=== PATIENT | male | born 1995 | race Caucasian/White ===

== ENCOUNTER 2021-11-14 01:32 | Emergency (ER) | payer BC, SELFPAY ==
[2021-11-14 01:32] VITALS: BP 179/101; PULSE 82; RESP 18; TEMP 36.8; O2SAT 98; BMI 54.9
--- NOTE | 2021-11-14 02:12 | EDS_ITS ---
HPI History of Present Illness Chief Complaint: Eye Problem Narrative Narrative: Patient is a 26-year-old male who wears contact lenses. He states that around 5 or 6 o'clock this evening he noticed that his left eye was irritated. He states that he took the lenses out but as the time progressed so did the pain. He denies any direct trauma to the eye or concern for foreign body but with the worsening symptoms presents for evaluation. [facility] Medical History Hypertension Home Medications ciprofloxacin HCl 2 drp LEFT EYE 4X/DAY 5 Days #10 ml 11/14/21 [Rx Last Taken Unknown] Allergy/AdvReac Type Severity Reaction Status Date / Time No Known Allergies Allergy Verified 11/14/21 01:35 Social History Smoking Status: Never smoker ROS ROS ED Constitutional Constitutional ED: Denies chills or fever(s) Eyes Eyes: Reports other Details: Positive left eye pain redness and increased tearing ; Denies diplopia ENT ENT ED: Denies sore throat Cardiovascular Cardiovascular: Denies chest pain Respiratory/Chest Respiratory/Chest: Denies cough or dyspnea Gastrointestinal Gastrointestinal: Denies abdominal pain, diarrhea, nausea or vomiting Musculoskeletal Musculoskeletal: Denies myalgias Integumentary Denies rash Neurologic Neurologic: Denies headache(s) Hematologic/Lymphatic Hematologic/Lymphatic: Denies easy bleeding or easy bruising EXAM Physical Exam Const Vital Signs: 11/14/21 01:32 Temperature 98.2 F Temperature Source Temporal Pulse Rate 82 Respiratory Rate 18 Blood Pressure 179/101 H Blood Pressure Mean 127 Pulse Ox 98 Oxygen Delivery Method Room Air Positive well nourished, well developed and obese General Appearance ED: well developed Nutritional Appearance: obese HEENT Reports moist mucous membranes atraumatic Eyes PERRL and EOMs intact bilaterally Eyes Narrative: Pupils are equal reactive to light and accommodation extraocular muscles are intact. Upper lid was everted there is no foreign body present on left. There is asymmetric scleral injection of the left eye compared to right with increased tearing. Ellis lamp exam shows a corneal abrasion over top the sclera around the 3 o'clock position. Negative Chanda sign. Neck supple Resp normal respiratory effort and clear to auscultation bilaterally Cardio regular rate and regular rhythm Extremity normal to inspection Neuro oriented x3 and CN's II-XII intact bilaterally Sensorium / Orientation: alert Psych mental status grossly normal Mood & Affect: Negative for depressed or anxious Skin no rashes or lesions noted Lesions: no lesions Rashes: no rashes MDM MDM MDM Narrative Medical decision making narrative: Patient presented with unilateral eye redness and pain. He does wear contact lenses. On exam he has a small corneal abrasion around the 3 o'clock position but no foreign body or signs of globe rupture. He also achieved 100% pain relief with tetracaine which also correlates with a corneal abrasion. The patient will be put on Cipro eyedrops because of his abrasion and contact lens use but otherwise as there is no retained foreign body or globe rupture he is safe for discharge Discharge Plan Triage Chief Complaint: Eye Problem ED Provider: Gino Lee Dx/Rx/DC Orders Clinical Impression: Corneal abrasion due to contact lens Instructions: ED Corneal Abrasion Prescriptions: New ciprofloxacin HCl 0.3 % drops 2 drp LEFT EYE 4X/DAY 5 Days Qty: 10 RF: 0 Primary Care Provider: Dana Givens Referrals: Dana Givens MD [Primary Care Provider] - Activity Restrictions/Additional Instructions: Please do not wear your contact lenses for the next 5 days while you are on antibiotic drops Disposition Disposition: Home, Self Care
[2021-11-14] MEDS: Fluorescein 1 MG STRIP 1 STRIP LEFT EYE (02:49)
[2021-11-14] MEDS: Tetracaine 0.5% Ophthalmic Bottle 1 DRP LEFT EYE (02:49)
== END 2021-11-14 02:51 | disposition home or self-care (01) ==
LOC: ED 02:40
PROVIDERS: Emergency Provider Emergency Medicine
DX: H18.829 Corneal disorder due to contact lens, unspecified eye (principal); E66.9 Obesity, unspecified
CPT/HCPCS: 99282

== ENCOUNTER → 2025-07-22 | Outpatient (CLI) | payer BC, SELFPAY ==
--- OUTSIDE RECORDS SUMMARY | 2025-07-22 07:59 | XMS RPT_ITS | CCD ---
Author Organization [facility] Care Team Providers Care Tube Molder Fiberglass Name Role Phone No Doctor Assigned, Nodr Unavailable Unavail able Wilenr Guerin Unavailable Unavailable No Doctor Assigned, Nodr Unavailable Unavail able Unavailable Primary Care Provider Unavailbonnie e Unavailable Primary Care Provider UnavailNICHOL Styles MD Attending Unavailable NICHOL MIRZA MD Consulting Unavailable NICHOL MIRZA MD Primary Care Unavailable NICHOL MIRZA MD Admitting Unavailable PROVIDER, UNKNOWN Consulting Unavailable PROVIDER, UNKNOWN Consulting Unavailable PROVIDER, UNKNOWN Consulting Unavailable AVIVA MINER Attending Unavailable AVIVA MINER Referring Unavailable Unavailable Primary Care Provider UnavailFRANCISCO Harris MD Consulting Unavailable YARMAN COLLAR CUTTER~[phone], QI SIMON Primary C are Unavailable KELL GREENE~[phone], KELL SINGH Admitting Unavailable KELL GREENE~[phone], KELL SINGH Attending Unavailable FRANCISCO CASTORENA MD Consulting Unavailable YARMAN COLLAR CUTTER, AUR[place]A Consulting Unavailable YARMCHRISTOS INIGUEZN, [place]A Consulting Unavailable Bogdan Oleary Referring Unavailable Bogdan Oleary Attending Unavailable Care Physician, No Primary Primary Care Unava ilable Care Physician, No Primary Primary Care Unava ilable Bogdan Oleary Referring Unavailable Bogdan Oleary Attending Unavailable Allergies Allergy Classification Reported Allergen(s) Allergy Type Date of Onset Reaction(s) Facility (1 source) No Known Medication Allergies; Translations: [No Known Medication Allergies] Propensity to adverse reactions to drug (disorder) [facility] Repository Medications Current Medications Medication Drug Class(es) Dates Sig (Normalized) Sig (Original) tirzepatide (MOUNJARO) 2.5 mg/0.5 mL pen injector (3 sources) Start: 08-16-2022 End: 09-15-2022 tirzepatide (MOUNJARO) 2.5 mg/0.5 mL pen injector Indications: Class 3 severe obesity with serious comorbidity in adult, unspecified BMI, unspecified obesity type (HCC) , Body mass index 50.0-59.9, adult (HCC) Inject 2.5 mg subcutaneously one time a week. 2 mL 0 08/16/2022 09/15/2022 Active Comment on above: Inject 2.5 mg subcut aneously one time a week. tirzepatide, weight loss (ZEPBOUND) 2.5 mg/0.5 mL pen injector (1 source) Start: 11-21-2023 End: 02-19-2024 inject 2.5 mg by subcutaneous injection every week tirzepatide, weight loss (ZEPBOUND) 2.5 mg/0.5 mL pen injector Inject 2.5 mg subcutaneously one time a week. 6 mL 0 11/21/2023 02/19/2024 Active Comment on above: Inject 2.5 mg subcut aneously one time a week. topiramate 25 mg oral tablet (9 sources) Start: 11-21-2023 End: 02-19-2024 take 50-59.9 tablets by mouth once daily topiramate (TOPAMAX) 25 mg tablet Indications: Class 3 severe obesity with serious comorbidity in adult, unspecified BMI, unspecified obesity type (HCC) , Body mass index 50.0-59.9, adult (HCC) , Steatosis of liver , Dietary counseling and surveillance , Benign hypertension Take 3 tablets by mouth once daily. 270 tablet 0 11/21/2023 02/19/2024 Active Start: 04-09-2022 End: 11-14-2022 take 50-59.9 tablets by mouth once daily topiramate (TOPAMAX) 25 mg tablet Indications: Class 3 severe obesity with serious comorbidity in adult, unspecified BMI, unspecified obesity type (HCC) , Steatosis of liver , Benign hypertension , Body mass index 50.0-59.9, adult (HCC) , Dietary counseling and surveillance , Daytime sleepiness Take 3 tablets by mouth once daily. 270 tablet 0 08/16/2022 11/14/2022 Active Comment on above: Take 1 tablet by renetta th once daily. Take 3 tablets by mo uth once daily. Completed/Discontinued Medications Medication Drug Class(es) Dates Sig (Normalized) Sig (Original) hydroCHLOROthiazide 12.5 mg / lisinopril 10 mg oral tablet (9 sources) Thiazide Diuretic, Angiotensin Converting Enzyme Inhibitor Start: 05-18-2019 take 10-12.5 mg by mouth once in the morning lisinopril-hydroc hlorothiazide (PRINZIDE,ZESTORE TIC) 10-12.5 mg per tablet Indications: Benign hypertension Take 1 tablet by mouth every morning. 30 tablet 3 05/18/2019 Active Comment on above: Take 1 tablet by renetta every morning. Problems Active Problems Problem Classification Problem Date Documented Da te Episodic/Chronic Abdominal hernia (4 sources) Epigastric hernia; Translations: [Ventral hernia without obstruction or gangrene] Episodic Essential hypertension (13 sources) Benign hypertension; Translations: [Essential (primary) hypertension] Onset: 06-07-2016 06-07-2016 Chronic Other acquired deformities (1 source) Unequal limb length (acquired), left femur; Translations: [Unequal limb length (acquired), left femur] Onset: 06-20-2025 Episodic Other bone disease and musculoskeletal deformities (1 source) Other specified disorders of bone density and structure, other site; Translations: [Other specified disorders of bone density and structure, other site] Onset: 07-13-2025 Episodic Other gastrointestinal disorders (1 source) Finding of abdomen; Translations: [Generalized intra-abdominal and pelvic swelling, mass and lump] Episodic Other liver diseases (2 sources) Steatosis of liver; Translations: [Fatty (change of) liver, not elsewhere classified] Chronic Other liver diseases (2 sources) Fatty (change of) liver, not elsewhere classified; Translations: [Steatosis of liver] Onset: 11-21-2023 Chronic Other lower respiratory disease (1 source) Snoring; Translations: [Snoring] Episodic Other non-traumatic joint disorders (1 source) Other instability, right ankle; Translations: [Other instability, right ankle] Onset: 07-13-2025 Episodic Other nutritional; endocrine; and metabolic disorders (3 sources) Morbid obesity; Translations: [Morbid (severe) obesity due to excess calories] Onset: 06-07-2016 06-07-2016 Chronic Other nutritional; endocrine; and metabolic disorders (11 sources) Severe obesity; Translations: [Morbid (severe) obesity due to excess calories] Onset: 06-07-2016 Chronic Other nutritional; endocrine; and metabolic disorders (10 sources) Body mass index 40+ - severely obese; Translations: [Body mass index (BMI) 50.0-59.9, adult] Onset: 04-09-2022 Chronic Other nutritional; endocrine; and metabolic disorders (2 sources) Morbid (severe) obesity due to excess calories; Translations: [Class 3 severe obesity with serious comorbidity in adult, unspecified BMI, unspecified obesity type (HCC)] Onset: 04-09-2022 Chronic Other nutritional; endocrine; and metabolic disorders (2 sources) Body mass index (BMI) 50.0-59.9, adult; Translations: [Body mass index 50.0-59.9, adult (HCC)] Onset: 04-09-2022 Chronic Residual codes; unclassified (1 source) Obstructive sleep apnea syndrome; Translations: [Obstructive sleep apnea (adult) (pediatric)] Onset: 11-21-2023 11-21-2023 Chronic Sprains and strains (1 source) Sprain of other ligament of right ankle, initial encounter; Translations: [Sprain of other ligament of right ankle, initial encounter] Onset: 07-13-2025 Episodic Past or Other Problems Problem Classification Problem Date Documented Da te Episodic/Chronic Administrative/social admission (11 sources) Patient encounter status; Translations: [Dietary counseling and surveillance] Onset: 04-09-2022 Episodic Coma; stupor; and brain damage (11 sources) Daytime somnolence; Translations: [Somnolence] Onset: 04-09-2022 Episodic Results Test Name Value Interpretation Reference Range Facil [facility] Comprehensive metabolic 2000 panelon 01-16-2024 Albumin [Mass/Vol] 4.2 g/dL Normal 3.9-4.9 [facility] Comment on above: Order Comment: Tristan singer Type: BLOOD SPECIMEN Ordering Facility: [facility] Address: [address] [place] [address] Performed By: #### 2 4323-8, 2132-9 #### [facility] CLIA [id number] [address] [place], [place] [address] [place] [address] [place] ALP [Catalytic activity/Vol] 96 U/L Normal 38-113 [facility] Comment on above: Order Comment: Tristan singer Type: BLOOD SPECIMEN Ordering Facility: [facility] Address: [address] [place], [place] [address] Performed By: #### 2 432-8, 2132-08 #### [facility] CLIA [id number] [address] [place] [address] [place] ALT [Catalytic activity/Vol] 63 U/L High 10-54 [facility] Comment on above: Order Comment: Speci men Type: BLOOD SPECIMEN Ordering Facility: [facility] Address: [address] [place] [address] Performed By: #### 2 4323-07, 2132-08 #### [facility] CLIA [id number] [address] [place] [address] [place] Anion gap [Moles/Vol] 13 mmol/L Normal 9-18 [facility] Comment on above: Order Comment: Speci men Type: BLOOD SPECIMEN Ordering Facility: [facility] Address: [address] [place] [address] Performed By: #### 2 43202-05, 2132-08 #### [facility] CLIA [id number] [address] [place] [address] [place] AST [Catalytic activity/Vol] 27 U/L Normal 14-40 [facility] Comment on above: Order Comment: Speci men Type: BLOOD SPECIMEN Ordering Facility: [facility] Address: [address] [place] [address] Performed By: #### 2 4323-07, 2132-08 #### [facility] CLIA [id number] [address] [place] [address] [place] Bilirubin [Mass/Vol] 0.4 mg/dL Normal 0.2-1.3 [facility] Comment on above: Order Comment: Speci men Type: BLOOD SPECIMEN Ordering Facility: [facility] Address: [address] [place] [address] Performed By: #### 2 43202-05, 2132-08 #### [facility] CLIA [id number] [address] [place] [address] [place] Calcium [Mass/Vol] 9.4 mg/dL Normal 8.5-10.2 [facility] Comment on above: Order Comment: Speci men Type: BLOOD SPECIMEN Ordering Facility: [facility] Address: [address] [place] [address] Performed By: #### 2 4328, 2132-08 #### [facility] CLIA [id number] [address] [place] [address] [place] Chloride [Moles/Vol] 102 mmol/L Normal 97-105 [facility] Comment on above: Order Comment: Speci men Type: BLOOD SPECIMEN Ordering Facility: [facility] Address: [address] [place] [address] Performed By: #### 2 43202-05, 2132-08 #### [facility] CLIA [id number] [address] [place] [address] [place] CO2 [Moles/Vol] 27 mmol/L Normal 22-30 [facility] Comment on above: Order Comment: Speci men Type: BLOOD SPECIMEN Ordering Facility: [facility] Address: [address] [place] [address] Performed By: #### 2 4328, 2132-08 #### [facility] CLIA [id number] [address] [place] [address] [place] Creatinine [Mass/Vol] 0.88 mg/dL Normal 0.73-1.22 [facility] Comment on above: Order Comment: Speci men Type: BLOOD SPECIMEN Ordering Facility: [facility] Address: [address] [place] [address] Performed By: #### 2 432-8, 2132-08 #### [facility] CLIA [id number] [address] [place] [address] [place] Creatinine and Glomerular filtration rate.predicted panel (S/P/Bld) 119 mL/min/1.73m??? Normal >=60 [facility] Comment on above: Order Comment: Tristan singer Type: BLOOD SPECIMEN Ordering Facility: [facility] Address: [address] [place] [address] Result Comment: Buffy mated Glomerular Filtration Rate (eGFR) is calculated using the 2020 CKD-EPI creatinine equation. This equation utilizes serum creatinine, sex, and age as parameters. The creatinine assay has traceable calibration to isotope dilution-mass spectrometry. Refer to KDIGO guidelines for clinical interpretation. In patients with unstable renal function, e.g. those with acute kidney injury, the eGFR may not accurately reflect actual GFR. Performed By: #### 2 4323-8, 2132-08 #### [facility] CLIA [id number] [address] [place] [address] [place] Glucose [Mass/Vol] 105 mg/dL High 74-99 [facility] Comment on above: Order Comment: Tristan singer Type: BLOOD SPECIMEN Ordering Facility: [facility] Address: [address] [place] [address] Result Comment: The [place] Diabetes Association (ADA) provides guidance for cutoff values for fasting glucose and random glucose. The ADA defines fasting as no caloric intake for at least 8 hours. Fasting plasma glucose results between 100 to 125 mg/dL indicate increased risk for diabetes (prediabetes). Fasting plasma glucose results greater than or equal to 126 mg/dL meet the criteria for diagnosis of diabetes. In the absence of unequivocal hyperglycemia, results should be confirmed by repeat testing. In a patient with classic symptoms of hyperglycemia or hyperglycemic crisis, random plasma glucose results greater than or equal to 200 mg/dL meet the criteria for diagnosis of diabetes. Reference: Standards of Medical Care in Diabetes 2016, [place] Diabetes Association. Diabetes Care. 2016.39(Suppl 1). Performed By: #### 2 4323-8, 2132-08 #### [facility] CLIA [id number] [address] [place] [address] [place] Potassium [Moles/Vol] 4.8 mmol/L Normal 3.7-5.1 [facility] Comment on above: Order Comment: Speci men Type: BLOOD SPECIMEN Ordering Facility: [facility] Address: [address] [id number] Performed By: #### 2 4323-8, 2132-08 #### [facility] CLIA [id number] [address] [place] [address] [place] Protein [Mass/Vol] 6.8 g/dL Normal 6.3-8.0 [facility] Comment on above: Order Comment: Speci men Type: BLOOD SPECIMEN Ordering Facility: [facility] Address: [address] [place] [address] Performed By: #### 2 4323-8, 2132-08 #### [facility] CLIA [id number] [address] [place] [address] [place] Sodium [Moles/Vol] 142 mmol/L Normal 136-144 [facility] Comment on above: Order Comment: Speci men Type: BLOOD SPECIMEN Ordering Facility: [facility] Address: [address] [place] [address] Performed By: #### 2 4323-8, 2132-08 #### [facility] CLIA [id number] [address] [place] [address] [place] Urea nitrogen [Mass/Vol] 10 mg/dL Normal 9-24 [facility] Comment on above: Order Comment: Speci men Type: BLOOD SPECIMEN Ordering Facility: [facility] Address: [address] [place] [address] Performed By: #### 2 4323-8, 2132-08 #### [facility] CLIA [id number] [address] [place] [address] [place] HbA1c (Bld)on 01-16-2024 Average glucose Estimated from glycated hemoglobin (Bld) [Mass/Vol] 123 mg/dL Normal [facility] Comment on above: Order Comment: Speci men Type: BLOOD SPECIMEN Ordering Facility: [facility] Address: [address] [place], [place] [address] Result Comment: eAG: (Estimated average glucose) is a calculated value from HgbA1c and is ocean import representative of the average blood glucose level in the last 2-3 month period. Performed By: #### 5 5454-3 #### [facility] CLIA [id number] [address] [place] [address] [place] HbA1c (Bld) [Mass fraction] 5.9 % High 4.3-5.6 [facility] Comment on above: Order Comment: Speci men Type: BLOOD SPECIMEN Ordering Facility: [facility] Address: [address] [place] [address] Result Comment: [place] Diabetes Association guidelines indicate that patients with HgbA1c in the range 5.7-6.4% are at increased risk for development of diabetes, and intervention by lifestyle modification may be beneficial. HgbA1c greater or equal to 6.5% is considered diagnostic of diabetes. Performed By: #### 5 5454-3 #### [facility] CLIA [id number] [address] [place] [address] [place] Insulin SerPl-aCncon 01-16- 024 Insulin Qn 43.9 u[IU]/mL High 3.0-25.0 [facility] Comment on above: Order Comment: Tristan singer Type: BLOOD SPECIMEN Ordering Facility: [facility] Address: [address] [place] [address] Performed By: #### 2 0448-7 #### [facility] CLIA [id number] [address] [place] [address] [place] Vit B12 SerPl-mCncon 024 Cobalamin (Vitamin B12) [Mass/Vol] 484 pg/mL Normal 232-1245 [facility] Comment on above: Order Comment: Tristan singer Type: BLOOD SPECIMEN Ordering Facility: [facility] Address: [address] [place] [address] Performed By: #### 2 4323-8, 2132-9 #### [facility] CLIA [id number] [address] [place], [place] [address] [facility] Neto 11-27-2023 CNPN Telephone (AGGENS4) RAVEN KAUR ([id number]) 1995 M Date Time Provider Department 11/27/23 AVIVA MINER AGGENS4 During your visit today, we recorded the following information about you: Wilfredo Bonner MA 11/27/2023 2:31 PM Signed Patient called stating that his insurance requires prior authorization for Zepbound. I attempted to submit PA via cover my meds however It would not let me submit as it could not verify the patient. I called [employer] to initiate over the phone and was informed that they are having trouble submitting due to a third green party. I called the patient and he informed me that he is getting new insurance that starts on 12/01/2023 and advised that I can just wait until next week and submit through them. See below insurance info: [employer] PPO ID: [id number] Group: [id number] Provider Services: [phone] [facility] [id number] Covered through current employment RXBin:[id number] PCN: [id number] RX Group: [id number] ILA Townsend Heather, [place] 12/03/2023 2:16 PM Signed I submitted prior authorization for Zepbound via cover my meds using provided insurance information and received the following automatic response: Information regarding your request This request cannot be processed due to the medication is not covered by the plan. Patient informed that Zepbound is not covered by his plan. Wilfredo Bonner MA Allergies As of Date: 11/27/2023 (No Known Allergies) Date Reviewed: 11/21/2023 Reviewed by: Shoshana Brunner Ma - Fully Assessed Reason for Visit: Medication Preauthorization [914] Cmt: Zepbound Prescriptions as of 12/03/2023 - topiramate (TOPAMAX) 25 mg tablet Take 3 tablets by mouth once daily. - tirzepatide, weight loss (ZEPBOUND) 2.5 mg/0.5 mL pen injector Inject 2.5 mg subcutaneously one time a week. 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] 03/27/2010 06/07/2016 Benign hypertension [I10] 06/07/2016 Class 3 severe obesity with serious comorbidity*06/07/2016 Daytime sleepiness [R40.0] 04/09/2022 Dietary counseling and surveillance [Z71.3] 04/09/2022 Body mass index 50.0-59.9, adult (HCC) [Z68.43] 04/09/2022 Obstructive sleep apnea syndrome [G47.33] 11/21/2023 Encounter Status:Closed by WILFREDO BONNER on 12/03/23 [facility] Vital Signs Date Time Vital Sign Value Performing Clinician Phyllis saavedra 08-16-2022 13:11-0400 Body height 188 cm Aviva Miner MD Work Phone: [facility] 08-16-2022 13:11-0400 Body weight 193.23 kg Aviva Miner MD Work Phone: [facility] 04-09-2022 09:08-0400 Body height 188 cm Aviva Miner MD Work Phone: [facility] 04-09-2022 09:08-0400 Body weight 193.23 kg Aviva Miner MD Work Phone: [facility] 04-09-2022 09:08-0400 Diastolic blood pressure 80 mm[Hg] Aviva Miner MD Work Phone: [facility] 04-09-2022 09:08-0400 Heart rate 79 /min Aviva Miner MD Work Phone: [facility] 04-09-2022 09:08-0400 Respiratory rate 16 /min Aviva Miner MD Work Phone: [facility] 04-09-2022 09:08-0400 SaO2% (BldA) [Mass fraction] 97 % Aviva Miner MD Work Phone: [facility] 04-09-2022 09:08-0400 Systolic blood pressure 130 mm[Hg] Aviva Miner MD Work Phone: [facility] 03-18-2022 17:47-0400 Body temperature 96.49 [degF] [facility] COLLAR CUTTER.ALTERATION INSPECTOR Work Phone: [facility] 03-18-2022 17:47-0400 Body weight 192.78 kg [facility] COLLAR CUTTER.ALTERATION INSPECTOR Work Phone: [facility] 03-18-2022 17:47-0400 Diastolic blood pressure 104 mm[Hg] Bogdan P[place]lebury COLLAR CUTTER.ALTERATION INSPECTOR Work Phone: [facility] 03-18-2022 17:47-0400 Heart rate 97 /min Bogdan P[place]lebury COLLAR CUTTER.ALTERATION INSPECTOR Work Phone: [facility] 03-18-2022 17:47-0400 Respiratory rate 20 /min [facility] COLLAR CUTTER.ALTERATION INSPECTOR Work Phone: [facility] 03-18-2022 17:47-0400 SaO2% (BldA) [Mass fraction] 96 % [facility] COLLAR CUTTER.ALTERATION INSPECTOR Work Phone: [facility] 03-18-2022 17:47-0400 Systolic blood pressure 156 mm[Hg] Bogdan Pendlebury COLLAR CUTTER.ALTERATION INSPECTOR Work Phone: [facility] Encounters Encounter Date Encounter Type Care Provider Facility Start: 07-22-2025 ambulatory No Primary Car e Physician Facility:[facility] Start: 06-20-2025 ambulatory Bogdan Ireland y:[facility] Start: 01-29-2025 ambulatory FRANCISCO CASTORENA MD Facilit y:[facility] Start: 01-23-2024 Telephone encounter Aviva keith MD Work Phone: [facility] Start: 01-16-2024 End: 01-17-2024 ambulatory AVIVA MINER Facility:[facility] Start: 11-21-2023 End: 11-21-2023 ambulatory [facility] Facility:[facility] Start: 08-28-2023 End: 08-28-2023 ambulatory NICHOL GREENE [facility] Start: 08-22-2022 Telephone encounter Aviva keith MD Work Phone: [facility] Comment on above: Medication Authoriza tion (topamax) Medication Authoriza tion (mounjaro) Start: 08-16-2022 End: 08-16-2022 ambulatory Aviva Miner MD Work Phone: [facility] Comment on above: Class 3 severe obesi ty with serious comorbidity in adult, unspecified BMI, unspecified obesity type (HCC) (Primary Dx); Steatosis of liver; Benign hypertension; Body mass index 50.0-59.9, adult (HCC); Dietary counseling and surveillance; Daytime sleepiness; Ventral hernia without obstruction or gangrene Start: 08-16-2022 End: 08-16-2022 Telemedicine consultation with patient Aviva Miner MD Work Phone: [facility] Start: 07-16-2022 Telephone encounter Aviva keith MD Work Phone: [facility] Comment on above: Missed Appointment ( Called to reschedule appt. For Phentermine #1) Start: 04-25-2022 End: 04-25-2022 ambulatory Meek Hartmann MD Work Phone: [facility] Comment on above: Epigastric hernia (P rimary Dx); Class 3 severe obesity with serious comorbidity in adult, unspecified BMI, unspecified obesity type (HCC); Steatosis of liver Start: 04-25-2022 End: 04-25-2022 Telemedicine consultation with patient Meek Hartmann MD Work Phone: [facility] Start: 04-09-2022 End: 04-09-2022 Subsequent hospital visit by physician [facility] Work Phone: [facility] Comment on above: Epigastric hernia [K 43.9] Start: 04-09-2022 End: 04-09-2022 Patient encounter procedure Aviva Miner MD Work Phone: [facility] Comment on above: Class 3 severe obesi ty with serious comorbidity in adult, unspecified BMI, unspecified obesity type (HCC) (Primary Dx); Epigastric hernia; Benign hypertension; Body mass index 50.0-59.9, adult (HCC); Dietary counseling and surveillance; Daytime sleepiness; Snoring Start: 04-08-2022 Telephone encounter Aviva keith MD Work Phone: [facility] Comment on above: Appointment (switche d to in office) Start: 03-18-2022 End: 03-18-2022 Patient encounter procedure Bogdan Graham APRN.ALTERATION INSPECTOR Work Phone: [facility] Comment on above: Generalized swelling , mass, or lump of abdomen or pelvis (Primary Dx) Start: 02-26-2018 End: 02-26-2018 Ambulatory Nodr No Doctor Assigned Facility:[facility] Procedures Date Procedure Procedure Detail Performing Clinician Start: 04-09-2022 Ct abdomen & pelvis w/contrast material Meek Hartmann MD Work Phone: Start: 04-02-2019 Adult depression screening assessment Bogdan Graham APRN.ALTERATION INSPECTOR Work Phone: Plan of Treatment Date Care Activity Detail Author Start: 12-01-2023 Depression Assessment Depression Ass essment [facility] Start: 08-01-2023 Influenza vaccination Influenza Vacc ine (#1) [facility] Start: 08-16-2022 End: 10-16-2022 25-hydroxyvitamin D3 [Mass/volume] in Serum or Plasma VITAMIN D 25 HYDROXY Lab Routine Class 3 severe obesity with serious comorbidity in adult, unspecified BMI, unspecified obesity type (HCC) Steatosis of liver Benign hypertension Body mass index 50.0-59.9, adult (HCC) Dietary counseling and surveillance Daytime sleepiness Expected: 08/16/2022, Expires: 10/16/2022 [facility] Work Phone: Comment on above: Expected: 08/16/2022 , Expires: 10/16/2022 Start: 08-16-2022 End: 10-16-2022 CBC panel - Blood by Automated count CBC Lab Routine Class 3 severe obesity with serious comorbidity in adult, unspecified BMI, unspecified obesity type (HCC) Steatosis of liver Benign hypertension Body mass index 50.0-59.9, adult (HCC) Dietary counseling and surveillance Daytime sleepiness Expected: 08/16/2022, Expires: 10/16/2022 [facility] Work Phone: Comment on above: Expected: 08/16/2022 , Expires: 10/16/2022 Start: 08-16-2022 End: 10-16-2022 Cobalamin (Vitamin B12) [Mass/volume] in Serum or Plasma VITAMIN B12 BLOOD Lab Routine Class 3 severe obesity with serious comorbidity in adult, unspecified BMI, unspecified obesity type (HCC) Steatosis of liver Benign hypertension Body mass index 50.0-59.9, adult (HCC) Dietary counseling and surveillance Daytime sleepiness Expected: 08/16/2022, Expires: 10/16/2022 [facility] Work Phone: Comment on above: Expected: 08/16/2022 , Expires: 10/16/2022 Start: 08-16-2022 End: 10-16-2022 Comprehensive metabolic 2000 panel - Serum or Plasma COMP METABOLIC PANEL Lab Routine Class 3 severe obesity with serious comorbidity in adult, unspecified BMI, unspecified obesity type (HCC) Steatosis of liver Benign hypertension Body mass index 50.0-59.9, adult (HCC) Dietary counseling and surveillance Daytime sleepiness Expected: 08/16/2022, Expires: 10/16/2022 [facility] Work Phone: Comment on above: Expected: 08/16/2022 , Expires: 10/16/2022 Start: 08-16-2022 End: 10-16-2022 Hemoglobin A1c in Blood HGB A1C Lab Routine Class 3 severe obesity with serious comorbidity in adult, unspecified BMI, unspecified obesity type (HCC) Steatosis of liver Benign hypertension Body mass index 50.0-59.9, adult (HCC) Dietary counseling and surveillance Daytime sleepiness Expected: 08/16/2022, Expires: 10/16/2022 [facility] Work Phone: Comment on above: Expected: 08/16/2022 , Expires: 10/16/2022 Start: 08-16-2022 End: 10-16-2022 Lipid 1996 panel - Serum or Plasma LIPID PANEL BASIC Lab Routine Class 3 severe obesity with serious comorbidity in adult, unspecified BMI, unspecified obesity type (HCC) Steatosis of liver Benign hypertension Body mass index 50.0-59.9, adult (HCC) Dietary counseling and surveillance Daytime sleepiness Expected: 08/16/2022, Expires: 10/16/2022 [facility] Work Phone: Comment on above: Expected: 08/16/2022 , Expires: 10/16/2022 Start: 08-01-2022 Influenza vaccination C [facility] Start: 04-09-2022 End: 06-09-2022 CBC panel - Blood by Automated count CBC Lab Routine Epigastric hernia Benign hypertension Class 3 severe obesity with serious comorbidity in adult, unspecified BMI, unspecified obesity type (HCC) Body mass index 50.0-59.9, adult (HCC) Expected: 04/09/2022, Expires: 06/09/2022 [facility] Work Phone: Comment on above: Expected: 04/09/2022 , Expires: 06/09/2022 Start: 04-09-2022 End: 06-09-2022 Comprehensive metabolic 2000 panel - Serum or Plasma COMP METABOLIC PANEL Lab Routine Epigastric hernia Benign hypertension Class 3 severe obesity with serious comorbidity in adult, unspecified BMI, unspecified obesity type (HCC) Body mass index 50.0-59.9, adult (HCC) Expected: 04/09/2022, Expires: 06/09/2022 [facility] Work Phone: Comment on above: Expected: 04/09/2022 , Expires: 06/09/2022 Start: 04-09-2022 End: 06-09-2022 Hemoglobin A1c/Hemoglobin.total in Blood HGB A1C Lab Routine Epigastric hernia Benign hypertension Class 3 severe obesity with serious comorbidity in adult, unspecified BMI, unspecified obesity type (HCC) Body mass index 50.0-59.9, adult (HCC) Expected: 04/09/2022, Expires: 06/09/2022 [facility] Work Phone: Comment on above: Expected: 04/09/2022 , Expires: 06/09/2022 Start: 04-09-2022 End: 06-09-2022 Insulin [Units/volume] in Serum or Plasma INSULIN ASSAY BLOOD Lab Routine Epigastric hernia Benign hypertension Class 3 severe obesity with serious comorbidity in adult, unspecified BMI, unspecified obesity type (HCC) Body mass index 50.0-59.9, adult (HCC) Expected: 04/09/2022, Expires: 06/09/2022 [facility] Work Phone: Comment on above: Expected: 04/09/2022 , Expires: 06/09/2022 Start: 04-09-2022 End: 06-09-2022 LIPID PANEL BASIC LIPID PANEL BASIC Lab Routine Epigastric hernia Benign hypertension Class 3 severe obesity with serious comorbidity in adult, unspecified BMI, unspecified obesity type (HCC) Body mass index 50.0-59.9, adult (HCC) Expected: 04/09/2022, Expires: 06/09/2022 [facility] Work Phone: Comment on above: Expected: 04/09/2022 , Expires: 06/09/2022 Start: 04-09-2022 End: 06-09-2022 Thyrotropin [Units/volume] in Serum or Plasma TSH BLD Lab Routine Epigastric hernia Benign hypertension Class 3 severe obesity with serious comorbidity in adult, unspecified BMI, unspecified obesity type (HCC) Body mass index 50.0-59.9, adult (HCC) Expected: 04/09/2022, Expires: 06/09/2022 [facility] Work Phone: Comment on above: Expected: 04/09/2022 , Expires: 06/09/2022 Start: 04-09-2022 End: 06-09-2022 VITAMIN B12 BLOOD VITAMIN B12 BLOOD Lab Routine Epigastric hernia Benign hypertension Class 3 severe obesity with serious comorbidity in adult, unspecified BMI, unspecified obesity type (HCC) Body mass index 50.0-59.9, adult (HCC) Expected: 04/09/2022, Expires: 06/09/2022 [facility] Work Phone: Comment on above: Expected: 04/09/2022 , Expires: 06/09/2022 Start: 04-09-2022 End: 06-09-2022 VITAMIN D 25 HYDROXY VITAMIN D 25 HYDROXY Lab Routine Epigastric hernia Benign hypertension Class 3 severe obesity with serious comorbidity in adult, unspecified BMI, unspecified obesity type (HCC) Body mass index 50.0-59.9, adult (HCC) Expected: 04/09/2022, Expires: 06/09/2022 [facility] Work Phone: Comment on above: Expected: 04/09/2022 , Expires: 06/09/2022 Start: 04-30-2020 ANNUAL PCP TEAM DIRECTOR SUPPLY ZHANE DISEASE VISIT ANNUAL PCP TEAM CHRONIC DISEASE VISIT [facility] Start: 04-02-2020 Adult depression screening assessment DEPRESSION SCREENING [facility] Start: 07-01-2016 Urine microalbumin profile [facility] Start: 2011 ANNUAL PCP TEAM DIRECTOR SUPPLY ZHANE DISEASE VISIT ANNUAL PCP TEAM CHRONIC DISEASE VISIT [facility] Start: 2011 BP CONTROLLED (<130/80) BP CONTROLLE D (<130/80) [facility] Start: 2011 HEPATITIS C SCREENING HEPATITIS C [facility] Start: 2011 Hepatitis C screening Hepatitis C [facility] Start: 2011 HIV SCREENING HIV SCREENING [facility] Start: 2011 HIV screening HIV Screening [facility] Start: 1998 COVID-19 VACCINE (#1) COVID-19 VACCI NE (#1) [facility] Start: 1998 COVID-19 VACCINE (1) COVID-19 VACCIN E (1) [facility] Start: 1993 COVID-19 VACCINE (#1) COVID-19 VACCI NE (#1) [facility] Ct abdomen & pelvis w/contrast material CT ABD/PEL W IVCON Radiology Routine Epigastric hernia Morbid obesity due to excess calories (HCC) 04/09/2022 2:47 PM EDT [facility] Work Phone: [facility] Immunizations Immunization Date Immunization Notes Care Provider Fa josh 07-01-2006 tetanus toxoid, reduced diphtheria toxoid, and acellular pertussis vaccine, adsorbed Bogdan Pendshawna COLLAR CUTTER[employer] Work Phone: [facility] Work Phone: 07-01-2005 Meningococcal, MCV4, unspecified conjugate formulation(groups A, C, Y and W-135) Bogdan Graham COLLAR CUTTER.[facility] Work Phone: [facility] Work Phone: 08-26-1998 diphtheria, tetanus toxoids and pertussis vaccine Bogdan Graham COLLAR CUTTER.ALTERATION INSPECTOR Work Phone: [facility] Work Phone: 08-26-1998 measles, mumps and rubella virus vaccine Bogdan Graham COLLAR CUTTER.[facility] Work Phone: [facility] Work Phone: 08-26-1998 trivalent poliovirus vaccine, live, oral Bogdan Graham COLLAR CUTTER.[facility] Work Phone: [facility] Work Phone: 07-20-1996 diphtheria, tetanus toxoids and acellular pertussis vaccine Bogdan Graham COLLAR CUTTER.ALTERATION INSPECTOR Work Phone: [facility] Work Phone: 07-20-1996 haemophilus influenz ae type b vaccine, HbOC conjugate Bogdan Graham COLLAR CUTTER.ALTERATION INSPECTOR Work Phone: [facility] Work Phone: 07-20-1996 measles, mumps and rubella virus vaccine Bogdan Pendshawna COLLAR CUTTER.ALTERATION INSPECTOR Work Phone: [facility] Work Phone: 1996 Chicken Pox (disease) [facility] Work Phone: [facility] Work Phone: 01-03-1994 diphtheria, tetanus toxoids and pertussis vaccine Bogdanvasiliy [facility] Work Phone: [facility] Work Phone: 01-03-1994 haemophilus influenz ae type b vaccine, HbOC conjugate [facility] C[employer] Work Phone: [facility] Work Phone: 01-03-1994 hepatitis B vaccine, pediatric or pediatric/adolescent dosage Bogdanvasiliy [facility] [employer] C[employer] Work Phone: [facility] Work Phone: 01-03-1994 trivalent poliovirus vaccine, live, oral [facility] Work Phone: [facility] Work Phone: 1993 diphtheria, tetanus toxoids and pertussis vaccine [facility] Work Phone: [facility] Work Phone: 1993 haemophilus influenz ae type b vaccine, HbOC conjugate [facility] Work Phone: [facility] Work Phone: 1993 hepatitis B vaccine, pediatric or pediatric/adolescent dosage Bogdanvasiliy [facility] [employer] Work Phone: [facility] Work Phone: 1993 trivalent poliovirus vaccine, live, oral [facility] Work Phone: [facility] Work Phone: 1993 diphtheria, tetanus toxoids and pertussis vaccine Bogdan [facility] Work Phone: [facility] Work Phone: 1993 haemophilus influenz ae type b vaccine, HbOC conjugate Bogdan Santos COLLAR CUTTER.ALTERATION INSPECTOR Work Phone: [facility] Work Phone: 1993 trivalent poliovirus vaccine, live, oral Bogdanvasiliy Graham COLLAR CUTTER.ALTERATION INSPECTOR Work Phone: [facility] Work Phone: 1993 hepatitis B vaccine, pediatric or pediatric/adolescent dosage Bogdan Santos COLLAR CUTTER.ALTERATION INSPECTOR Work Phone: [facility] Work Phone: Payers Date Payer Category Payer Self-pay 2017 Unknown 2017 Unknown [employer] PPO [id number] 2017-Present [phone] [facility] [id number] [place] [address] PPO [id number] 2017 Unknown [id number] 1993 Unknown [id number] 1993 Unknown [id number] 1959 Unknown [id number] Unknown [id number] Unknown [id number] Unknown [id number] Social History Date Type Detail Facility Start: [facility]-02-[facility] Work Phone: History of tobacco use Chews Tobacco [facility] Start: 03-18-2022 End: 11-21-2023 Alcohol intake Current drinker of alcohol (finding) [facility] Start: 01-09-2016 History SDOH Alcohol Comment occasional [facility] Start: 1993 Sex Assigned At Not on file C [facility] Start: 03-08-2022 End: 04-09-2022 Exposure to SARS-CoV-2 (event) Not sure [facility] Start: 03-26-2022 End: 11-21-2023 Alcohol intake [facility] Start: 03-26-2022 History SDOH Alcohol Comment 2x/week [facility] Start: 03-30-2022 End: 04-09-2022 Exposure to SARS-CoV-2 (event) Yes [facility] Start: 04-02-2019 Tobacco use and exposure User of smokeless tobacco [facility] Start: 04-02-2019 End: 11-21-2023 Tobacco use panel [facility] Adult Depression Screening Assessment 0 [facility] Clinical Notes 03-27-2010 to 11-21-2023 Telephone Encounter - Leonarda Liu MA - 08/22/2022 10:41 AM EDTTelephone Encounter - Leonarda Liu MA - 08/22/2022 10:29 AM EDTPatient InstructionsPatient InstructionsPatient Instructions Note Date & Type Note Facility 11-21-2023 Note HNO ID: [id number] Author: Aviva Miner MD Service: ? Author Type: Physician Type: Progress Notes Filed: 11/21/2023 3:49 PM Note Text: Aviva Miner MD [facility] [address] [place] [address], [facility] [address] [place] [id number] This Team Access Model visit is a virtual visit due to COVID -19 Pandemic . It required patient-provider interaction for the medical decision making as documented below. Consent was obtained to complete today's distance health visit. Raven Kaur is a 27 year old male with PMH of HTN/ here today for a follow up on his weight loss efforts. He is currently taking the prescription weight loss medication Topiramate Concerns: Stopped topamax as didn't see help Has been following with sleep Medicine : has sleep study :on cpap BP has been better controlled Mounjaro was not covered He is continuing with diet changes: no -Main focus of dietary changes: no routine/as so busy He is continuing with exercise changes: no -Exercise routine: has been remodeling house Goal weight:300 Review of weight loss medication side effects Any GI upset? no Changes to blood pressure? no Visual Changes: no -- Patient reports some suppression of his appetite and increase in satiety since starting the medication Diet: Not been very consistent with meals mainly because of his schedule -- He also states that it has been very hard to eat at home and not doing meal preparation but recommended to add more protein may be going to the grocery store where he can buy prepackaged food including salads and protein. Discussed starting with good structure. Sleep: ok Stress: Coping well Smoking/Alcohol -denies Review of Systems Constitutional: Positive for malaise/fatigue. HENT: Negative for congestion and tinnitus. Eyes: Negative for blurred vision. Respiratory: Negative for shortness of breath. Cardiovascular: Negative for palpitations, orthopnea and leg swelling. Gastrointestinal: Negative for heartburn, nausea and vomiting. Genitourinary: Negative for dysuria and frequency. No kidney stones Musculoskeletal: Negative for back pain and joint pain. Neurological: Negative for weakness. Psychiatric/Behavioral: The patient does not have insomnia. No kidney stones No previous history of pancreatitis No personal or family history of medullary thyroid cancer No Family history of MEN syndrome VITALS: Ht 188 cm (6' 2) Wt (!) 188.2 kg (415 lb) BMI 53.28 kg/m? , Body mass index is 53.28 kg/m?. Physical Exam Constitutional:. --no issues with communication HEENT: Normocephalic and atraumatic. Eyes: Conjunctiva appear normal. No scleral icterus. Hearing: Is grossly intact. Neck: Range of motion appears normal. Thyroid: appears symmetric and not enlarged. Pulmonary/Chest: Effort normal. Psychiatric: Mood, memory, affect and judgment normal. Neurological: alert and oriented to person, place, and time. Impression and Plan: ASSESSMENT/PLAN: 1. Class 3 severe obesity with serious comorbidity in adult, unspecified BMI, unspecified obesity type (HCC) - ICD9: 278.01, ICD10: E66.01 (primary diagnosis) Has lost 10 pounds since his last visit. - Behavioral and pharmacological intervention -- counseled in length ,recommended Low carb /low sugar diet --managing maladaptive eating behaviors and adding resistance exercise. Continue low carb diet, weights/cardio exercise and increase NEAT. I have also reviewed he possibility of using weight loss medications in an effort to reduce her appetite. I have reviewed the different therapeutic options available including We have also reviewed the possibility of using on her medications such as metformin which has been also associated with weight loss. We agreed that trying Zepbound could be her best option at this point. I reviewed with the patient pros and cons of taking this medication. What is the indication or diagnosis? Weight loss Body mass index is 53.28 kg/m?. All other indications or diagnoses PAST MEDICAL HISTORY Diagnosis Date Benign hypertension 06/07/2016 PMH - PAST MEDICAL HISTORY OF fractured left femur at age 5 years PMH - PAST MEDICAL HISTORY OF color vision normal Routine or ritual circumcision Will the medication be used concomitantly with any other weight loss medications? Topamax Will the medication be used concomitantly with other glucagon-like peptide-1 agonists? No Does the patient currently have a body mass index (BMI) greater than or equal to 30 kilograms per meter squared (30 kg/m2)? Body mass index is 53.28 kg/m?. Has the patient engaged in a trial of behavioral modification and dietary restriction for at least 6 months? yes Will Zepbound be used concomitantly with behavioral modification and a reduced-calorie diet? Yes - TOPIRAMATE 25 MG TABLET - CBC - COMP METABOLIC PANEL (more content not included)... [facility] 08-22-2022 Miscellaneous Notes RAD flores sent to plan documented in this encounter [facility] 08-22-2022 Miscellaneous Notes RAD cortesamabenito sent to plan documented in this encounter [facility] 08-16-2022 Instructions Aviva Miner MD - 08/16/2022 1:39 PM EDT Images from the original note were not included. TRYING TO LOSE WEIGHT? Your Body mass index is 54.7 kg/m . (Target BMI: 19-25) A person with a BMI between 25 and 29.9 is considered overweight A person with a BMI of 30 or greater is considered to be obese SETTING A WEIGHT LOSS GOAL: Last 5 Encounter Wt Readings: Date: Wt: 08/16/2022 193.2 kg (426 lb) 04/09/2022 193.2 kg (426 lb) 03/26/2022 191.6 kg (422 lb 6.4 oz) 03/20/2022 195.1 kg (430 lb 3.2 oz) 03/18/2022 192.8 kg (425 lb) Lose 10% of body weight over six months, about 1-2 lbs per week LIFESTYLE CHANGES -- The goals of lifestyle changes are to help you change your eating habits, become more active, and be more aware of how much you eat and exercise, helping you to make healthier choices. This can be broken down into three steps: 1. Triggers to eat -- Determining what triggers you to eat involves figuring out what foods you eat and where and when you eat. To figure out what triggers you to eat, keep a record for a few days of everything you eat, the places where you eat, how often you eat, and the emotions you were feeling when you ate. For some people, the trigger is related to a certain time of day or night. For others, the trigger is related to a certain place, like sitting at a desk working. 2. Eating -- You can change your eating habits by breaking the chain of events between the trigger for eating and eating itself. There are many ways to do this. For instance, you can: Limit where you eat to a few places (eg, dining room) Restrict the number of utensils (eg, only a fork) used for eating Drink a sip of water between each bite Chew your food a certain number of times Get up and stop eating every few minutes 3. What happens after you eat -- Rewarding yourself for good eating behaviors can help you to develop better habits. This is not a reward for weight loss; instead, it is a reward for changing unhealthy behaviors. Do not use food as a reward. Some people find money, clothing, or personal care (eg, a hair cut, manicure, or massage) to be effective rewards. Treat yourself immediately after making better eating choices to reinforce the value of the good behavior. You need to have clear behavior goals, and you must have a time frame for reaching your goals. Reward small changes along the way to your final goal. Other factors that contribute to successful weight loss -- Establish a kit system -- Having a friend or family member available to provide support and reinforce good behavior is very helpful. The support person needs to understand your goals. Learn to be strong -- Learning to be strong when tempted by food is an important part of losing weight. As an example, you will need to learn how to say no and continue to say no when urged to eat at parties and social gatherings. Develop strategies for events before you go, such as eating before you go or taking low-calorie snacks and drinks with you. Develop a support system -- Having a support system is helpful when losing weight. This is why many [employer] groups are successful. Family support is also essential; if your family does not support your efforts to lose weight, this can slow your progress or even keep you from losing weight. Positive thinking -- People often have conversations with themselves in their head; these conversations can be positive or negative. If you eat a piece of cake that was not planned, you may respond by thinking, Oh, you stupid idiot, you've blown your diet! and as a result, you may eat more cake. A positive thought for the same event could be, Well, I ate cake when it was not on my plan. Now I should do something to get back on track. A positive approach is much more likely to be successful than a negative one. Reduce stress -- Although stress is a part of everyday life, it can trigger uncontrolled eating in some people. It is important to find a way to get through these difficult times without eating or by eating low-calorie food, like raw vegetables. It may be helpful to imagine a relaxing place that allows you to temporarily escape from stress. With deep breaths and closed eyes, you can imagine this relaxing place for a few minutes. Self-help programs -- Self-help programs like Weight Watchers , Overeaters Anonymous , and Take Off Pounds Sensibly (TOPS) work for some people. As with all weight loss programs, you are most likely to be successful with these plans if you make long-term changes in how you eat. CHOOSING A DIET -- A calorie is a unit of energy found in food. Your body needs calories to function. The goal of any diet is to burn up more calories than you eat. How quickly you lose weight depends upon several factors, such as your age, gender, and starting weight. Older people have a slower metabolism than young people, so they lose weight more slowly. Men lose more weight than women of similar height and weight when dieting because they use more energy. People who are extremely overweight lose weight more quickly than those who are only mildly overweight. How many calories do I need? -- You can estimate the number of calories you need per day based upon your current (or target) weight, gender, and activity level for women and for men. In general, it is best to choose foods that contain enough protein, carbohydrates, essential fatty acids, and vitamins. Try not to drink alcohol or drinks with added sugar, and most sweets (candy, cakes, cookies), since they rarely contain important nutrients. Portion-controlled diets -- One simple way to diet is to buy packaged foods, like frozen low-calorie meals or meal-replacement canned drinks. A typical meal plan for 1000 to 1500 calories per day may include: A meal-replacement drink or breakfast bar for breakfast A meal-replacement drink or a frozen low-calorie (250 to 350 calories) meal for lunch A frozen low-calorie meal or other prepackaged, calorie-controlled meal, along with extra vegetables for dinner Low-fat diet -- To reduce the amount of fat in your diet, you can: Eat low-fat foods. Low-fat foods are those that contain less than 30 percent of calories from fat. Fat is listed on the food facts label Count fat grams. For a 1500 calorie diet, this would mean about 45 g or fewer of fat per day. Low-carbohydrate diet -- Low- and vcrj-hzm-cdsnljlomhew diets (eg, Atkins diet, [employer] diet) have become popular ways to lose weight quickly. With a npxz-bdh-ovrcfdtfimfd diet, you eat between 0 and 60 grams of carbohydrates per day (a standard diet contains 200 to 300 grams of carbohydrates) With a low-carbohydrate diet, you eat between 60 and 130 grams of carbohydrates per day Carbohydrates are found in fruits, vegetables, and grains (including breads, rice, pasta, and cereal), alcoholic beverages, and in dairy products. Meat and fish do not contain carbohydrates. Side effects of lmnh-tmp-eyonlezmcocp diets can include constipation, headache, bad breath, muscle cramps, diarrhea, and weakness. Mediterranean diet -- The term Mediterranean diet refers to a way of eating that is common in olive-growing regions around the [place]. Although there is some variation in Mediterranean diets, there are some similarities. Most Mediterranean diets include: A high level of monounsaturated fats (from olive or canola oil, walnuts, pecans, almonds) and a low level of saturated fats (from butter) A high amount of vegetables, fruits, legumes, and grains (7 to 10 servings of fruits and vegetables per day) A moderate amount of milk and dairy products, mostly in the form of cheese. Use low-fat dairy products (skim milk, fat-free yogurt, low-fat cheese). A relatively low amount of red meat and meat products. Substitute fish or poultry for red meat. For those who drink alcohol, a modest amount (mainly as red wine) may help to protect against cardiovascular disease. A modest amount is up to one (4 ounce) glass per day for women and up to two glasses per day for men. Which diet is best? -- No one diet is best for weight loss. Any diet will help you to lose weight if you stick with the diet. Therefore, it is important to choose a diet that includes foods you like. Fad diets -- Fad diets often promise quick weight loss (more than 1 to 2 pounds per week) and may claim that you do not need to exercise or give up favorite foods. Some fad diets cost a lot of money, because you have to pay for seminars or pills. Fad diets generally lack any scientific evidence that they are safe and effective, but instead rely on before and after photos or testimonials. Diets that sound too good to be true usually are. These plans are a waste of time and money and are not recommended. A doctor, nurse, or investment fund manager can help you find a safe and effective way to lose weight and keep it off. Adapted from [facility] My opinion 3 hour Rule: -last meal /snack 3 hours before sleeping ,but mostly try to be done by 7 pm --eat Rich Breakfast, high in protein hard boiled eggs/protein drinks - At least 3 hours break between each meals ,except water --sleep 7 hours at night , that means going to bed early -- drink only water ( no soda or juices) /no Alcohol consumption --cut down on coffee consumption if consuming high amounts Website :You can visit to web site for low carb recipe information as well as visual guide to low carb food: Https://www.dietdoctor.com/ ( visual guide for low carb diet) Limit carb consumption to 80- 100 grams per day. Goals: formal exercise 2-5 x/week as tolerated, start with 10 mins/day to goal of 30 minutes ( -- for exercise, you should shoot for a goal of >150 min per week initially. Depending at what level you are starting, that may seem like an unachievable task. However, the best plan is to just begin to walk or bike or do another activity that you like and track your steps per day. You do not need to pay attention to the time, but you do need to try to increase your exercise every 3 weeks. Other strength exercises, using light weights or training bands may also be useful, especially when combined with regular aerobic exercise. Studies have shown that >200min per week is best to maintain weight loss, so that would be the overall end goal.) Have 3 meals a day-protein source with each meal (structured meal planning) Food journal daily and bring it to all appointments If you want you can REPLACE one of your meals with a liquid meal or frozen meal. This is easy to start and may help with your weight. 1. Liquid meal replacement (Boost, Ensure) 2. Frozen meal (Healthy Choice, Lean Cuisine - sodium under 650mg, can always add veggies to the meal) 3. Powdered protein (Premier Protein) or meal replacement (I like a plant based meal replacement called [employer] - can mix w froz berries and almond milk) -- IN GENERAL - suggestions based on important of our sleep cycle called circadian rhythm and its influence on our gut microbiota and overall health tragetory 1) EAT MOST OF YOUR FOOD IN AM AND EARLY PM 2) NO EATING AT NIGHT 3) EXERCISE DURING DAY 4) BE CONSISTENT WITH MEAL STRUCTURE ie Meals at same time during the day. -- keep record of your food intake - it is easier for us to understand your eating habits and food preferences, looking into the amounts of protein, carbs, and fat in your diet. Good examples of apps to track calories are [employer]AL, LOSE IT. Some patient have found FOODUCATE to help with decisions around food, however choose apps that best suits you. TIRZEPATIDE (MOUNJARO) Tirzepatide (Mounjaro) is a new combination drug (mimics 2 gut hormones, GLP1 and GIP) which has demonstrated superior weight loss >20% body wt loss after 72 week randomized controlled study. It's only approved for diabetes currently, but likely will have approval for weight/obesity next year. Below is more information on it as we discussed. Savings Card: https://www.[employer]/savings -resources Link to [employer] Project Manager Website [facility] Medication Guide: https://pi.[email or web address] [employer]/us/mounjaro -us-mg.pdf?s=mg How to Use Pen: [email or web address]://uspl.[email or web address]/[email or web address]/ mounjaro.html#ug0 Tirzepatide: Patient drug information What is Mounjaro? Mounjaro is an injectable prescription medicine that is used along with diet and exercise to improve blood sugar (glucose) in adults with type 2 diabetes mellitus. It is not known if Mounjaro can be used in people who have had inflammation of the pancreas (pancreatitis). Mounjaro is not for use in people with type 1 diabetes. It is not known if Mounjaro is safe and effective for use in children under 18 years of age. It works in multiple ways. It helps: - THE BODY RELEASE INSULIN WHEN BLOOD SUGAR IS HIGH - THE BODY REMOVE EXCESS SUGAR FROM THE BLOOD - STOP THE LIVER FROM MAKING AND RELEASING TOO MUCH SUGAR - REDUCE HOW MUCH FOOD IS EATEN - SLOW DOWN HOW QUICKLY FOOD LEAVES THE STOMACH. THIS LESSENS OVER TIME. You can learn about possible side effects of Mounjaro here. Select Safety Information Changes in vision. Tell your healthcare provider if you have changes in vision during treatment with Mounjaro PURPOSE AND SAFETY SUMMARY WITH WARNINGS Important Facts About Mounjaro (duzy-AYFI-BV). It is also known as tirzepatide. Mounjaro is an injectable prescription medicine for adults with type 2 diabetes used along with diet and exercise to improve blood sugar (glucose). It is not known if Mounjaro can be used in people who have had inflammation of the pancreas (pancreatitis). Mounjaro is not for use in people with type 1 diabetes. It is not known if Mounjaro is safe and effective for use in children under 18 years of age. Warnings Mounjaro may cause tumors in the thyroid, including thyroid cancer. Watch for possible symptoms, such as a lump or swelling in the neck, hoarseness, trouble swallowing, or shortness of breath. If you have a symptom, tell your healthcare provider. Do not use Mounjaro if you or any of your family have ever had a type of thyroid cancer called medullary thyroid carcinoma (MTC). Do not use Mounjaro if you have Multiple Endocrine Neoplasia syndrome type 2 (MEN 2). Do not use Mounjaro if you are allergic to tirzepatide or any of the ingredients in Mounjaro. Mounjaro may cause serious side effects, including: Inflammation of the pancreas (pancreatitis). Stop using Mounjaro and call your healthcare provider right away if you have severe pain in your stomach area (abdomen) that will not go away, with or without vomiting. You may feel the pain from your abdomen to your back. Low blood sugar (hypoglycemia). Your risk for getting low blood sugar may be higher if you use Mounjaro with another medicine that can cause low blood sugar, such as a sulfonylurea or insulin. Signs and symptoms of low blood sugar may include dizziness or light-headedness, sweating, confusion or drowsiness, headache, blurred vision, slurred speech, shakiness, fast heartbeat, anxiety, irritability, or mood changes, hunger, weakness and feeling jittery. Serious allergic reactions. Stop using Mounjaro and get medical help right away if you have any symptoms of a serious allergic reaction, including swelling of your face, lips, tongue or throat, problems breathing or swallowing, severe rash or itching, fainting or feeling dizzy, and very rapid heartbeat. Kidney problems (kidney failure). In people who have kidney problems, diarrhea, nausea, and vomiting may cause a loss of fluids (dehydration), which may cause kidney problems to get worse. It is important for you to drink fluids to help reduce your chance of dehydration. Severe stomach problems. Stomach problems, sometimes severe, have been reported in people who use Mounjaro. Tell your healthcare provider if you have stomach problems that are severe or will not go away. Changes in vision. Tell your healthcare provider if you have changes in vision during treatment with Mounjaro. Gallbladder problems. Gallbladder problems have happened in some people who use Mounjaro. Tell your healthcare provider right away if you get symptoms of gallbladder problems, which may include pain in your upper stomach (abdomen), fever, yellowing of skin or eyes (jaundice), and paulino-colored stools. Common side effects The most common side effects of Mounjaro include nausea, diarrhea, decreased appetite, vomiting, constipation, indigestion, and stomach (abdominal) pain. These are not all the possible side effects of Mounjaro. Talk to your healthcare provider about any side effect that bothers you or doesn't go away. Tell your healthcare provider if you have any side effects. You can report side effects at 8-462-VDR-4738 or www.fda.gov/medwatch. Before using Your healthcare provider should show you how to use Mounjaro before you use it for the first time. Before you use Mounjaro, talk to your healthcare provider about low blood sugar and how to manage it. Review these questions with your healthcare provider: Do you have other medical conditions, including problems with your pancreas or kidneys, or severe problems with your stomach, such as slowed emptying of your stomach (gastroparesis) or problems digesting food? Do you take other diabetes medicines, such as insulin or sulfonylureas? Do you have a history of diabetic retinopathy? Are you or plan to become or or plan to breastfeed? It is not known if Mounjaro will harm your unborn baby. Do you take control pills by mouth? These may not work as well while using Mounjaro. Your healthcare provider may recommend another type of control when you start Mounjaro or when you increase your dose. Do you take any other prescription medicines or dmrx-yne-whknsxm drugs, vitamins, or herbal supplements? How to take Read the Instructions for Use that come with Mounjaro. Use Mounjaro exactly as your healthcare provider says. Mounjaro is injected under the skin (subcutaneously) of your stomach (abdomen), thigh, or upper arm. Use Mounjaro 1 time each week, at any time of the day. Do not mix insulin and Mounjaro together in the same injection. If you take too much Mounjaro, call your healthcare provider or seek medical advice promptly. Learn more For more information, call 2-031-KoldcWp ( ) or go to www.[employer]. This information does not take the place of talking with your healthcare provider. Be sure to talk to your healthcare provider about Mounjaro and how to take it. Your healthcare provider is the best person to help you decide if Mounjaro is right for you. Mounjaro and its delivery device base are trademarks owned or licensed by [employer], its subsidiaries, or affiliates. [employer]DE[employer] [id number] Access Security Scorecard Online for additional drug information, tools, and databases. Copyright 1368-8065 [employer]. All rights reserved. Contributor Disclosures (For additional information see Tirzepatide: Drug information) You must carefully read the Consumer Information Use and Disclaimer below in order to understand and correctly use this information. Brand Names: [place] Mounjaro Warning This drug has been shown to cause thyroid cancer in some animals. It is not known if this happens in humans. If thyroid cancer happens, it may be deadly if not found and treated early. Call your doctor right away if you have a neck mass, trouble breathing, trouble swallowing, or have hoarseness that will not go away. Do not use this drug if you have a health problem called Multiple Endocrine Neoplasia syndrome type 2 (MEN 2), or if you or a family member have had thyroid cancer. Have your blood work checked and thyroid ultrasounds as you have been told by your doctor. What is this drug used for? It is used to lower blood sugar in patients with high blood sugar (diabetes). What do I need to tell my doctor BEFORE I take this drug? If you are allergic to this drug; any part of this drug; or any other drugs, foods, or substances. Tell your doctor about the allergy and what signs you had. If you have type 1 diabetes. Do not use this drug to treat type 1 diabetes. If you have ever had pancreatitis. If you have stomach or bowel problems. This is not a list of all drugs or health problems that interact with this drug. Tell your doctor and pharmacist about all of your drugs (prescription or OTC, natural products, vitamins) and health problems. You must check to make sure that it is safe for you to take this drug with all of your drugs and health problems. Do not start, stop, or change the dose of any drug without checking with your doctor. What are some things I need to know or do while I take this drug? Tell all of your health care providers that you take this drug. This includes your doctors, nurses, pharmacists, and dentists. Wear disease medical alert ID (identification). Follow the diet and workout plan that your doctor told you about. Check your blood sugar as you have been told by your doctor. Do not drive if your blood sugar has been low. There is a greater chance of you having a crash. control pills may not work as well to prevent . If you take control pills, you may need to switch to another type of hormone-based control like a vaginal ring if your doctor tells you to. If another type of hormone-based control is not an option, use some other kind of control also, like a condom. Do this for 4 weeks after starting this drug and for 4 weeks each time the dose is raised. This drug may prevent other drugs taken by mouth from getting into the body. If you take other drugs by mouth, you may need to take them at some other time than this drug. Talk with your doctor. It may be harder to control blood sugar during times of stress such as fever, infection, injury, or surgery. A change in physical activity, exercise, or diet may also affect blood sugar. Talk with your doctor before you drink alcohol. Do not share with another person even if the needle has been changed. Sharing your tray or pen may pass infections from one person to another. This includes infections you may not know you have. If you cannot drink liquids by mouth or if you have upset stomach, throwing up, or diarrhea that does not go away; you need to avoid getting dehydrated. Contact your doctor to find out what to do. Dehydration may lead to new or worse kidney problems. A severe and sometimes deadly pancreas problem (pancreatitis) has happened with other drugs like this one. Tell your doctor if you are , plan on getting , or are breast-feeding. You will need to talk about the benefits and risks to you and the baby. What are some side effects that I need to call my doctor about right away? WARNING/CAUTION: Even though it may be rare, some people may have very bad and sometimes deadly side effects when taking a drug. Tell your doctor or get medical help right away if you have any of the following signs or symptoms that may be related to a very bad side effect: Signs of an allergic reaction, like rash; hives; itching; red, swollen, blistered, or peeling skin with or without fever; wheezing; tightness in the chest or throat; trouble breathing, swallowing, or talking; unusual hoarseness; or swelling of the mouth, face, lips, tongue, or throat. Signs of kidney problems like unable to pass urine, change in how much urine is passed, blood in the urine, or a big weight gain. Signs of gallbladder problems like pain in the upper right belly area, right shoulder area, or between the shoulder blades; yellow skin or eyes; fever with chills; bloating; or very upset stomach or throwing up. Signs of a pancreas problem (pancreatitis) like very bad stomach pain, very bad back pain, or very bad upset stomach or throwing up. Dizziness or passing out. A fast heartbeat. Change in eyesight. Low blood sugar can happen. The chance may be raised when this drug is used with other drugs for diabetes. Signs may be dizziness, headache, feeling sleepy or weak, shaking, fast heartbeat, confusion, hunger, or sweating. Call your doctor right away if you have any of these signs. Follow what you have been told to do for low blood sugar. This may include taking glucose tablets, liquid glucose, or some fruit juices. What are some other side effects of this drug? All drugs may cause side effects. However, many people have no side effects or only have minor side effects. Call your doctor or get medical help if any of these side effects or any other side effects bother you or do not go away: Constipation, diarrhea, stomach pain, upset stomach, throwing up, or feeling less hungry. Heartburn. These are not all of the side effects that may occur. If you have questions about side effects, call your doctor. Call your doctor for medical advice about side effects. You may report side effects to your national health agency. How is this drug best taken? Use this drug as ordered by your doctor. Read all information given to you. Follow all instructions closely. It is given as a shot into the fatty part of the skin on the top of the thigh, belly area, or upper arm. If you will be giving yourself the shot, your doctor or nurse will teach you how to give the shot. Keep taking this drug as you have been told by your doctor or other health care provider, even if you feel well. Take the same day each week. Move site where you give the shot each time. Take with or without food. Wash your hands before and after use. Do not use if the solution is leaking or has particles. This drug is colorless to a faint yellow. Do not use if the solution changes color. If you are also using insulin, you may inject this drug and the insulin in the same area of the body but not right next to each other. Do not mix this drug in the same syringe with insulin. Do not move this drug from the pen to a syringe. Each pen is for one use only. Throw away any part of the used pen after the dose is given. Throw away needles in a needle/sharp disposal box. Do not reuse needles or other items. When the box is full, follow all local rules for getting rid of it. Talk with a doctor or pharmacist if you have any questions. What do I do if I miss a dose? If it is within 4 days after the missed dose, take the missed dose and go back to your normal day. If it has been more than 4 days since the missed dose, skip the missed dose and go back to your normal day. Do not take 2 doses at the same time or extra doses. How do I store and/or throw out this drug? Store in a refrigerator. Do not freeze. Do not use if it has been frozen. If needed, each pen may be stored at room temperature for up to 21 days. If you store at room temperature, throw away any part not used after 21 days. Protect from heat. Store in the original container to protect from light. Keep all drugs in a safe place. Keep all drugs out of the reach of children and pets. Throw away unused or drugs. Do not flush down a toilet or pour down a drain unless you are told to do so. Check with your pharmacist if you have questions about the best way to throw out drugs. There may be drug take-back programs in your area. General drug facts If your symptoms or health problems do not get better or if they become worse, call your doctor. Do not share your drugs with others and do not take anyone else's drugs. Some drugs may have another patient information leaflet. If you have any questions about this drug, please talk with your doctor, nurse, pharmacist, or other health care provider. If you think there has been an overdose, call your poison control center or get medical care right away. Be ready to tell or show what was taken, how much, and when it happened. Last Reviewed [id number] Consumer Information Use and Disclaimer This generalized information is a limited summary of diagnosis, treatment, and/or medication information. It is not meant to be comprehensive and should be used as a tool to help the user understand and/or assess potential diagnostic and treatment options. It does NOT include all information about conditions, treatments, medications, side effects, or risks that may apply to a specific patient. It is not intended to be medical advice or a substitute for the medical advice, diagnosis, or treatment of a health care provider based on the health care provider's examination and assessment of a patient's specific and unique circumstances. Patients must speak with a health care provider for complete information about their health, medical questions, and treatment options, including any risks or benefits regarding use of medications. This information does not endorse any treatments or medications as safe, effective, or approved for treating a specific patient. [employer] and its affiliates disclaim any warranty or liability relating to this information or the use thereof. The use of this information is governed by the Terms of Use, available at https://[email or web address].com/en /know/lggxylcm-[email or web address] ms. documented in this encounter [facility] 08-16-2022 History of Presen t illness Narrative Images from the original note were not included. Aviva Miner MD [facility] [address] [facility], [address] [facility] - Fourth Floor [place] [id number] This Team Access Model visit is a virtual visit due to COVID -19 Pandemic . It required patient-provider interaction for the medical decision making as documented below. Consent was obtained to complete today's distance health visit. Raven Kaur is a 27 year old male with PMH of HTN/ here today for a follow up on his weight loss efforts. He is currently taking the prescription weight loss medication Topiramate Concerns: No routine He is continuing with diet changes: no -Main focus of dietary changes: no routine He is continuing with exercise changes: no -Exercise routine: yard work Goal weight:300 Review of weight loss medication side effects Any GI upset? no Changes to blood pressure? no Visual Changes: no -- Patient reports some suppression of his appetite and increase in satiety since starting the medication Diet: Not been very consistent with meals mainly because of his schedule Sleep: ok Stress: Coping well Smoking/Alcohol -denies Review of Systems Constitutional: Positive for malaise/fatigue. HENT: Negative for congestion and tinnitus. Eyes: Negative for blurred vision. Respiratory: Negative for shortness of breath. Cardiovascular: Negative for palpitations, orthopnea and leg swelling. Gastrointestinal: Negative for heartburn, nausea and vomiting. Genitourinary: Negative for dysuria and frequency. No kidney stones Musculoskeletal: Negative for back pain and joint pain. Neurological: Negative for weakness. Psychiatric/Behavioral: The patient does not have insomnia. No kidney stones No previous history of pancreatitis No personal or family history of medullary thyroid cancer No Family history of MEN syndrome VITALS: Ht 188 cm (6' 2) Wt (!) 193.2 kg (426 lb) BMI 54.70 kg/m , Body mass index is 54.7 kg/m . Physical Exam Constitutional:. --no issues with communication HEENT: Normocephalic and atraumatic. Eyes: Conjunctiva appear normal. No scleral icterus. Hearing: Is grossly intact. Neck: Range of motion appears normal. Thyroid: appears symmetric and not enlarged. Pulmonary/Chest: Effort normal. Psychiatric: Mood, memory, affect and judgment normal. Neurological: alert and oriented to person, place, and time. Impression and Plan: ASSESSMENT/PLAN: 1. Class 3 severe obesity with serious comorbidity in adult, unspecified BMI, unspecified obesity type (HCC) - ICD9: 278.01, ICD10: E66.01 (primary diagnosis) Stable - Behavioral and pharmacological intervention -- counseled in length ,recommended Low carb /low sugar diet --managing maladaptive eating behaviors and adding resistance exercise. Continue low carb diet, weights/cardio exercise and increase NEAT. I have also reviewed he possibility of using weight loss medications in an effort to reduce her appetite. I have reviewed the different therapeutic options available including We have also reviewed the possibility of using on her medications such as metformin which has been also associated with weight loss. We agreed that trying Mounjaro could be her best option at this point. I reviewed with the patient pros and cons of taking this medication. I have also asked her check her blood pressure twice a week over the next 2 weeks and let me know if he goes over 150/100. - TOPIRAMATE 25 MG TABLET - CBC - COMP METABOLIC PANEL - HGB A1C - VITAMIN D 25 HYDROXY - VITAMIN B12 BLOOD - LIPID PANEL BASIC - CONSULT TO SLEEP MEDICINE - ADULT - MOUNJARO 2.5 MG/0.5 ML SUBCUTANEOUS PEN INJECTOR 2. Steatosis of liver - ICD9: 571.8, ICD10: K76.0 -GLP1 may help - TOPIRAMATE 25 MG TABLET - CBC - COMP METABOLIC PANEL - HGB A1C - VITAMIN D 25 HYDROXY - VITAMIN B12 BLOOD - LIPID PANEL BASIC 3. Benign hypertension - ICD9: 401.1, ICD10: I10 - suboptimal control - Recommended regular aerobic exercise. - Recommend home blood pressure monitoring, to bring results in on next visit - Goal of BP <130/80 - TOPIRAMATE 25 MG TABLET - CBC - COMP METABOLIC PANEL - HGB A1C - VITAMIN D 25 HYDROXY - VITAMIN B12 BLOOD - LIPID PANEL BASIC 4. Body mass index 50.0-59.9, adult (HCC) - ICD9: V85.43, ICD10: Z68.43 Stable - Behavioral and pharmacological intervention - TOPIRAMATE 25 MG TABLET - CBC - COMP METABOLIC PANEL - HGB A1C - VITAMIN D 25 HYDROXY - VITAMIN B12 BLOOD - LIPID PANEL BASIC - MOUNJARO 2.5 MG/0.5 ML SUBCUTANEOUS PEN INJECTOR 5. Dietary counseling and surveillance - ICD9: V65.3, ICD10: Z71.3 Reviewed principles of energy metabolism, caloric intake and expenditure, and rationale for treatment program. Also reinforced need for reduced calorie, low fat diet and increased physical activity. - TOPIRAMATE 25 MG TABLET - CBC - COMP METABOLIC PANEL - HGB A1C - VITAMIN D 25 HYDROXY - VITAMIN B12 BLOOD - LIPID PANEL BASIC 6. Daytime sleepiness - ICD9: 780.54, ICD10: R40.0 I have recommended to him to get sleep study, Order placed again - TOPIRAMATE 25 MG TABLET - CBC - COMP METABOLIC PANEL - HGB A1C - VITAMIN D 25 HYDROXY - VITAMIN B12 BLOOD - LIPID PANEL BASIC - CONSULT TO SLEEP MEDICINE - ADULT 7. Ventral hernia without obstruction or gangrene - ICD9: 553.20, ICD10: K43.9 Need to loose wt before repair --He is not interested in bariatric surgery right now. Aviva Miner MD He remains motivated to lose weight. Reviewed principles of energy metabolism, caloric intake and expenditure, and rationale for treatment program. Also reinforced need for reduced calorie, low fat diet and increased physical activity. Aviva Miner MD Some elements were copied from my last note, which have been updated where appropriate, and all reflect current medical decision making from TODAY Counseling Visit 23 minutes for preventive counseling/IBT Screening for obesity completed during initial plan of care. Patient was competent and alert at the time that counseling was provided. 5a's reviewed: Assess- I assessed behavioral health risk/factors affecting --- Asked about/assess behavioral health risk(s) and factors affecting choice of behavior change goals Due to busy schedule and busy with his work his schedule he is not able to eat on correct time -eats out frequently --Lack of exercise --Sugary drinks/soda Fatty liver Possible insulin resistance recommended to get labs done next Advise: clear, specific, personalized behavior change advice. -I gave very clear, specific, and personalized behavior change adviced, including information about personal health harms and benefits. Agree: Patient agrees with selected appropriate treatment goals and methods to change behavior Assist:provided IBT w self-help, handouts, teaching skills and support Using behavior change techniques with self-help and Counseling in achieving Goals. Also discussed supplementing with adjunctive medical treatments when appropriate. Arrange- follow up scheduled, Handouts given to patient My opinion -- 3 hour Rule -last meal /snack 3 hours before sleeping ,try to be done by 7 pm --eat Rich Breakfast - At Least 3 hours break between each meals ,except water --sleep 7 hours at night , that means going to bed early -- drink only water ( no soda or juices) /no Alcohol consumption --cut down on coffee consumption if consuming high amounts Website :You can visit to web site for low carb recipe information as well as visual guide to low carb food: [employer] Limit carb consumption to 80- 100 grams per day. Goals: formal exercise 2-5 x/week as tolerated, start with 10 mins/day to goal of 30 minutes Have 3 meals a day-protein source with each meal (structured meal planning) Food journal daily and bring it to all appointments -- IN GENERAL - suggestions based on important of our sleep cycle called circadian rhythm and its influence on our gut microbiota and overall health tragetory 1) EAT MOST OF YOUR FOOD IN AM AND EARLY PM 2) NO EATING AT NIGHT 3) EXERCISE DURING DAY 4) BE CONSISTENT WITH MEAL STRUCTURE ie Meals at same time during the day. -- keep record of your food intake - it is easier for us to understand your eating habits and food preferences, looking into the amounts of protein, carbs, and fat in your diet. Good examples of apps to track calories are [employer], LOSE IT. Some patient have found FOODUCATE to help with decisions around food, however choose apps that best suits you. -- for exercise, you should shoot for a goal of >150 min per week initially. Depending at what level you are starting, that may seem like an unachievable task. However, the best plan is to just begin to walk or bike or do another activity that you like and track your steps per day. You do not need to pay attention to the time, but you do need to try to increase your exercise every 3 weeks. Other strength exercises, using light weights or training bands may also be useful, especially when combined with regular aerobic exercise. Studies have shown that >200min per week is best to maintain weight loss, so that would be the overall end goal. -- One option we discussed is to REPLACE one of your meals with a liquid meal or frozen meal. This is easy to start and may help with your weight. 1. Liquid meal replacement (Boost, Ensure) 2. Frozen meal (Healthy Choice, Lean Cuisine - sodium under 650mg, can always add veggies to the meal) 3. Powdered protein (Premier Protein) or meal replacement (I like a plant based meal replacement called [employer] - can mix w froz berries and almond milk) This note was partially generated using [employer] voice recognition system, and there may be some incorrect words, spellings, and punctuation that were not noted in checking the note before saving History Review: I have reviewed and modified as needed, the following during this visit: Allergies, Past Medical History, Past Surgical History, Past Family History, Past Social History. documented in this encounter [facility] 07-16-2022 Miscellaneous Notes No Show Documentation Raven Kaur no showed for an appointment on 07/16/2022 with Aviva Miner MD at 10:30am. He was scheduled for Phentermine #1. I called and spoke with the patient regarding his missed appointment. Raven stated the reason that he missed his appointment was because N/A . Resources discussed/offered to patient: N/A No show determined to be fault of patient: N/A This is the patients first no show in the last 12 months. Patient was rescheduled for N/A. Letter mailed : Yes Is this the Third or Fourth No Show? No Leonela Medina- July 16, 2022 12:45 PM documented in this encounter [facility] 05-01-2022 Instructions Meek Hartmann MD - 05/01/2022 4:13 PM EDT Please do not hesitate to call my office for any questions or concerns. documented in this encounter [facility] 05-01-2022 History of Presen t illness Narrative AMBULATORY TELEPHONE VISIT Raven Kaur has consented to this telephone encounter. Persons Present: patient Chief Complaint/Reason: Epigastric hernia HPI: Mr Bishop is a 26-year-old male who suffers from super morbid obesity who presents for evaluation management of an epigastric hernia. Based on my exam, he has an incarcerated umbilical hernia. At our last visit, we decided on obtaining imaging to better evaluate the hernia. He was also referred to obesity medicine. At this point, he is doing well. Does not have any new complaints. His CT performed on 04/09/22 showed a fat containing supraumbilical hernia without any other intra-abdominal contents. It also showed probably hepatic steatosis. Data Reviewed: Most recent labs and imaging results. Assessment: (K43.9) Epigastric hernia (primary encounter diagnosis) (E66.01) Class 3 severe obesity with serious comorbidity in adult, unspecified BMI, unspecified obesity type (HCC) (K76.0) Steatosis of liver Plan: OK to monitor the hernia clinically. No need for urgent surgery. He should ideally lose weight prior to any repairs for this hernia. Total Time Spent: 15 minutes Meek Hartmann MD documented in this encounter [facility] 04-09-2022 Instructions Aviva Miner MD - 04/09/2022 9:32 AM EDT TRYING TO LOSE WEIGHT? Your Body mass index is 54.7 kg/m . (Target BMI: 19-25) A person with a BMI between 25 and 29.9 is considered overweight A person with a BMI of 30 or greater is considered to be obese SETTING A WEIGHT LOSS GOAL: Last 5 Encounter Wt Readings: Date: Wt: 04/09/2022 193.2 kg (426 lb) 03/26/2022 191.6 kg (422 lb 6.4 oz) 03/20/2022 195.1 kg (430 lb 3.2 oz) 03/18/2022 192.8 kg (425 lb) 02/14/2021 182.3 kg (401 lb 12.8 oz) Lose 10% of body weight over six months, about 1-2 lbs per week LIFESTYLE CHANGES The goals of lifestyle changes are to help you change your eating habits, become more active, and be more aware of how much you eat and exercise, helping you to make healthier choices. This can be broken down into three steps: 1. Triggers to eat Determining what triggers you to eat involves figuring out what foods you eat and where and when you eat. To figure out what triggers you to eat, keep a record for a few days of everything you eat, the places where you eat, how often you eat, and the emotions you were feeling when you ate. For some people, the trigger is related to a certain time of day or night. For others, the trigger is related to a certain place, like sitting at a desk working. 2. Eating You can change your eating habits by breaking the chain of events between the trigger for eating and eating itself. There are many ways to do this. For instance, you can: Limit where you eat to a few places (eg, dining room) Restrict the number of utensils (eg, only a fork) used for eating Drink a sip of water between each bite Chew your food a certain number of times Get up and stop eating every few minutes 3. What happens after you eat Rewarding yourself for good eating behaviors can help you to develop better habits. This is not a reward for weight loss; instead, it is a reward for changing unhealthy behaviors. Do not use food as a reward. Some people find money, clothing, or personal care (eg, a hair cut, manicure, or massage) to be effective rewards. Treat yourself immediately after making better eating choices to reinforce the value of the good behavior. You need to have clear behavior goals, and you must have a time frame for reaching your goals. Reward small changes along the way to your final goal. Other factors that contribute to successful weight loss Establish a kit system Having a friend or family member available to provide support and reinforce good behavior is very helpful. The support person needs to understand your goals. Learn to be strong Learning to be strong when tempted by food is an important part of losing weight. As an example, you will need to learn how to say no and continue to say no when urged to eat at parties and social gatherings. Develop strategies for events before you go, such as eating before you go or taking low-calorie snacks and drinks with you. Develop a support system Having a support system is helpful when losing weight. This is why many commercial groups are successful. Family support is also essential; if your family does not support your efforts to lose weight, this can slow your progress or even keep you from losing weight. Positive thinking People often have conversations with themselves in their head; these conversations can be positive or negative. If you eat a piece of cake that was not planned, you may respond by thinking, Oh, you stupid idiot, you've blown your diet! and as a result, you may eat more cake. A positive thought for the same event could be, Well, I ate cake when it was not on my plan. Now I should do something to get back on track. A positive approach is much more likely to be successful than a negative one. Reduce stress Although stress is a part of everyday life, it can trigger uncontrolled eating in some people. It is important to find a way to get through these difficult times without eating or by eating low-calorie food, like raw vegetables. It may be helpful to imagine a relaxing place that allows you to temporarily escape from stress. With deep breaths and closed eyes, you can imagine this relaxing place for a few minutes. Self-help programs Self-help programs like Weight Watchers , Overeaters Anonymous , and Take Off Pounds Sensibly (TOPS) work for some people. As with all weight loss programs, you are most likely to be successful with these plans if you make long-term changes in how you eat. CHOOSING A DIET A calorie is a unit of energy found in food. Your body needs calories to function. The goal of any diet is to burn up more calories than you eat. How quickly you lose weight depends upon several factors, such as your age, gender, and starting weight. Older people have a slower metabolism than young people, so they lose weight more slowly. Men lose more weight than women of similar height and weight when dieting because they use more energy. People who are extremely overweight lose weight more quickly than those who are only mildly overweight. How many calories do I need? You can estimate the number of calories you need per day based upon your current (or target) weight, gender, and activity level for women and for men. In general, it is best to choose foods that contain enough protein, carbohydrates, essential fatty acids, and vitamins. Try not to drink alcohol or drinks with added sugar, and most sweets (candy, cakes, cookies), since they rarely contain important nutrients. Portion-controlled diets One simple way to diet is to buy packaged foods, like frozen low-calorie meals or meal-replacement canned drinks. A typical meal plan for 1000 to 1500 calories per day may include: A meal-replacement drink or breakfast bar for breakfast A meal-replacement drink or a frozen low-calorie (250 to 350 calories) meal for lunch A frozen low-calorie meal or other prepackaged, calorie-controlled meal, along with extra vegetables for dinner Low-fat diet To reduce the amount of fat in your diet, you can: Eat low-fat foods. Low-fat foods are those that contain less than 30 percent of calories from fat. Fat is listed on the food facts label Count fat grams. For a 1500 calorie diet, this would mean about 45 g or fewer of fat per day. Low-carbohydrate diet Low- and joun-cxu-pelslsmdwvkp diets (eg, Atkins diet, Newell diet) have become popular ways to lose weight quickly. With a reia-ier-vzvotpfnpvzo diet, you eat between 0 and 60 grams of carbohydrates per day (a standard diet contains 200 to 300 grams of carbohydrates) With a low-carbohydrate diet, you eat between 60 and 130 grams of carbohydrates per day Carbohydrates are found in fruits, vegetables, and grains (including breads, rice, pasta, and cereal), alcoholic beverages, and in dairy products. Meat and fish do not contain carbohydrates. Side effects of mmfk-qnr-zezfnrswllwa diets can include constipation, headache, bad breath, muscle cramps, diarrhea, and weakness. Mediterranean diet The term Mediterranean diet refers to a way of eating that is common in olive-growing regions around the [place] Sea. Although there is some variation in Mediterranean diets, there are some similarities. Most Mediterranean diets include: A high level of monounsaturated fats (from olive or canola oil, walnuts, pecans, almonds) and a low level of saturated fats (from butter) A high amount of vegetables, fruits, legumes, and grains (7 to 10 servings of fruits and vegetables per day) A moderate amount of milk and dairy products, mostly in the form of cheese. Use low-fat dairy products (skim milk, fat-free yogurt, low-fat cheese). A relatively low amount of red meat and meat products. Substitute fish or poultry for red meat. For those who drink alcohol, a modest amount (mainly as red wine) may help to protect against cardiovascular disease. A modest amount is up to one (4 ounce) glass per day for women and up to two glasses per day for men. Which diet is best? No one diet is best for weight loss. Any diet will help you to lose weight if you stick with the diet. Therefore, it is important to choose a diet that includes foods you like. Fad diets Fad diets often promise quick weight loss (more than 1 to 2 pounds per week) and may claim that you do not need to exercise or give up favorite foods. Some fad diets cost a lot of money, because you have to pay for seminars or pills. Fad diets generally lack any scientific evidence that they are safe and effective, but instead rely on before and after photos or testimonials. Diets that sound too good to be true usually are. These plans are a waste of time and money and are not recommended. A doctor, nurse, or investment fund manager can help you find a safe and effective way to lose weight and keep it off. Adapted from [facility] My opinion 3 hour Rule: -last meal /snack 3 hours before sleeping ,but mostly try to be done by 7 pm --eat Rich Breakfast, high in protein hard boiled eggs/protein drinks - At least 3 hours break between each meals ,except water --sleep 7 hours at night , that means going to bed early -- drink only water ( no soda or juices) /no Alcohol consumption --cut down on coffee consumption if consuming high amounts Website :You can visit to web site for low carb recipe information as well as visual guide to low carb food: Https://www.dietdoctor[employer]/ ( visual guide for low carb diet) Limit carb consumption to 80- 100 grams per day. Goals: formal exercise 2-5 x/week as tolerated, start with 10 mins/day to goal of 30 minutes ( -- for exercise, you should shoot for a goal of >150 min per week initially. Depending at what level you are starting, that may seem like an unachievable task. However, the best plan is to just begin to walk or bike or do another activity that you like and track your steps per day. You do not need to pay attention to the time, but you do need to try to increase your exercise every 3 weeks. Other strength exercises, using light weights or training bands may also be useful, especially when combined with regular aerobic exercise. Studies have shown that >200min per week is best to maintain weight loss, so that would be the overall end goal.) Have 3 meals a day-protein source with each meal (structured meal planning) Food journal daily and bring it to all appointments If you want you can REPLACE one of your meals with a liquid meal or frozen meal. This is easy to start and may help with your weight. 1. Liquid meal replacement (Boost, Ensure) 2. Frozen meal (Healthy Choice, Lean Cuisine - sodium under 650mg, can always add veggies to the meal) 3. Powdered protein (Premier Protein) or meal replacement (I like a plant based meal replacement called [employer] Nutrition - can mix w froz berries and almond milk) -- IN GENERAL - suggestions based on important of our sleep cycle called circadian rhythm and its influence on our gut microbiota and overall health tragetory 1) EAT MOST OF YOUR FOOD IN AM AND EARLY PM 2) NO EATING AT NIGHT 3) EXERCISE DURING DAY 4) BE CONSISTENT WITH MEAL STRUCTURE ie Meals at same time during the day. -- keep record of your food intake - it is easier for us to understand your eating habits and food preferences, looking into the amounts of protein, carbs, and fat in your diet. Good examples of apps to track calories are [employer]astic[employer], LOSE IT. Some patient have found FOODUCATE to help with decisions around food, however choose apps that best suits you. Topiramate (toe pyre a mate) - Please start topiramate as discussed. Take one tablet (25mg) every night and increase to 2 tablets at night (50MG) after 2 weeks if there is no change in your appetite, cravings or weight. -- You can take it at night at first (because of potential sleepiness side effects), but earlier around dinner after you have started the medication for a few days. You also may be able to take it in the morning if easier. -- We may increase the dose to 3 tablets (75mg) a few weeks later if there is no change with 50mg and continue to increase the medication in this way (usually no more than 150mg). But it is best to contact me after 1 month to discuss continued increases of the medication. -- Please see the handout to review the potential side effects and to explain this further -Also discussed that when on topiramate , I would recommend using 2 different kind if control methods, Due to several anomaly( if female in reproductive age group) --no while on this medications --pt Agrees and verbalizes understanding. What are the common names? Topamax Why is this medication prescribed? Topiramate is an anti-epileptic medications which has been approved by the FDA for patients 10 years of age or older for treatment of seizures. However, topiramate also has other uses such as the treatment of migraines. It also causes decrease in appetite and weight loss. The mechanism of weight loss is thought to be through inhibition of mitochondrial enzymes involved in energy expenditure and metabolism. Topiramate may work by helping you feel less hungry, less driven to eat, more satisfied with less food. However while phentermine and topiramate in combination are approved by FDA for long-term treatment of obesity, topiramate as stand alone pharmacotherapy has not been approved for this purpose. Has been used in treatment of obesity as an off label, as discussed during your visit. What special precautions should I follow? --Recommended appropriate and consistent control method in women to prevent conception while taking topiramate.(recommended at least 2 methods of contraception as at times it can decrease the effectiveness of oral control pills) --(women in child bearing age ) I strongly recommend discontinue the use of medication prior to conception as the medication may be linked to anomalies and not safe to utilize during . Before having topiramate prescribed, tell your doctor and pharmacist: If you have allergies to any component of topiramate If you are , plan to become , are breast-feeding, or if you become while taking topiramate What are the warnings and precautions for this medication? Immediately discontinue the medicine and seek medical help if you have severe cognitive/neuropsychiatric adverse symptoms or eye symptoms. Cognitive/neuropsychiatric adverse events: symptoms may include confusion, psychomotor slowing, difficulty with concentration/attention, difficulty with memory, speech or language problems, particularily word-finding difficulties, somnolence or fatigue Acute myopia and secondary angle closure glaucoma, usually within 1 month of starting treatment: symptoms may include blurred vision, redness and/or pain in the eye Oligohydrosis (decrease sweating) and hyperthermia (elevation in body temperature) Increase in suicidal behavior or ideation Metabolic acidosis, non-gap hyperchloremic (decreased serum bicarbonate below normal levels) resulting in hyperventilation or fatigue Kidney stones Paresthesias (numbness or tingling in hands or feet) Ataxia Dizziness Increase in urination frequency Drug interactions. Use of monamine oxidase inhibitors (MAOI s), valproic acid, Caution use with dehydration or diarrheal illness, hepatic or renal impairment In case of emergency/overdose In case of overdose, call your local poison control center at or call local emergency services at [phone]. What other information should I know? Keep all appointments with your doctor and the laboratory. Do not let anyone else take your medication. Topiramate use needs to be monitored closely. Prescriptions may be refilled only a limited number of times. Keep a written list of all of your prescription and nonprescription ([id number]) medicines, in addition to vitamins, minerals, or other dietary supplements. How should I monitor while on this medication? Your doctor will check your baseline kidney function and electrolytes prior to starting this medication, then periodically. Continue to improve your dietary and physical activity habits as the combination works best while on this medication. Start out by taking the medication at bedtime as it can cause fatigue and sleepiness. Be sure to eat regular meals. Less hunger does not make it appropriate to skip meals. Make sure to have an eye exam, including the pressure in your eyes (intra-ocular pressure), once a year. What should I do if I forget a dose? Skip the missed dose and continue your regular dosing schedule the next day. Do not take a double dose to make up for a missed one. Sources Pubmed Health: http://www.ncbi.nlm.nih.gov/pubm edhealth/XJQ8773300/ Drugs.com http://www.drugs.com/pro/topiram ate.html documented in this encounter [facility] 04-09-2022 History of Presen t illness Narrative Images from the original note were not included. Aviva Miner MD [facility] [address] [place] [address] [address] - [address] Floor [place] [id number] SUBJECTIVE: Raven Kaur is a 27 year old male with PMX of HTn/ Epigastric hernia who presents on April 09, 2022 for medical evaluation of Non-Surgical Metabolic Weight Management . Age at onset - childhood. Rate of weight gain is described as gradual over years. Family history positive for obesity in the patient s patient. He considers ideal weight to be below 300 Weight at graduation from high school 240 lbs. Previous treatments include self-directed dieting. Lifestyle Factors: Diet: Do you think that you have a healthy diet? Yes. Overall characterization of present diet:Unstructured How have you tried to lose weight in the past? Yes. What worked? But no very successful . Exercise: Do you exercise ? No Are you able to walk up a flight of stairs or a small hill? Yes Patient's functional capacity is >4 METS. The composite complication rate of , unstable angina, OH, DVT, PE, renal failure, and stroke occurred in 16.6% of severely obese patients whose peak oxygen consumption was < 15.8 mL/kg/min but in only 2.8% of those whose cardiorespiratory fitness was >/= 15.8 mL/kg/min. By convention, 1 MET is considered equivalent to the consumption of 3.5 ml O2 kg-1 min-1 (or 3.5 ml of oxygen per kilogram of body mass per minute) and is roughly equivalent to the expenditure of 1 kcal per kilogram of body weight per hour. Sleep: Duration: > 6 hours:Yes Sleep apnea screen: S-snore:Yes. T-feel tired, fatigued, daytime sleepiness: Yes. O-observed patient stop breathing during sleep:No. P-does patient have, or being treated for high blood pressure:Yes. B-is BMI >35:Yes. A-Age >50: No N-Neck circumference >15.75 inches:Yes G-Male gender:Yes Stop Bang score: 6 Routine Breakfast 7 am-10 coffee with cream Varies BF sandwiches Or skips Lunch:11:30 sandwiches /bag of chips or going to subway Has cut down on snacking Dinner: 7:30 grills a lot Meat / chicken / rice /pottaoes Drinks beer after dinner can be a issues 5-6 a day 4-5 days a week Bedtime -11pm - Chest pain, SOB, or REDDY: No Stress test: no History of eating disorders: negative Associated medical conditions: hypertension Associated medications: none Cardiovascular risk factors: positive family history and obesity Current Outpatient Medications on File Prior to Visit Medication Sig lisinopril-hydrochlorothiazide (PRINZIDE,ZESTORETIC) 10-12.5 mg per tablet Take 1 tablet by mouth every morning. (Patient not taking: Reported on 02/14/2021 ) No current facility-administered medications on file prior to visit. ALLERGIES No Known Allergies PAST MEDICAL HISTORY Diagnosis Date Benign hypertension 06/07/2016 PMH - PAST MEDICAL HISTORY OF fractured left femur at age 5 years PMH - PAST MEDICAL HISTORY OF color vision normal Routine or ritual circumcision PAST SURGICAL HISTORY Procedure Laterality Date CIRCUMCISION W/CLAMP/OTH DEV W/BLOCK PAST SURGICAL HISTORY OF age 5 repair of broken femur PAST SURGICAL HISTORY OF Left 2010 knee surgery - meniscus and bone spurs Any problems with anesthesia with the above surgeries: NA FAMILY HISTORY Problem Relation Age of Onset None Mother Hypertension Father None Maternal Grandmother None Maternal Grandfather None Paternal Grandmother None Paternal Grandfather Diabetes Other pggm None Sister Social History Tobacco Use Smoking status: Never Smoker Smokeless tobacco: Current User Types: Chew Vaping Use Vaping Use: Never used Substance Use Topics Alcohol use: Yes Alcohol/week: 6.0 standard drinks Types: 6 Cans of Beer (12oz) per week Comment: 2x/week Drug use: No Review of Systems Constitutional: Negative for malaise/fatigue. HENT: Negative for congestion and tinnitus. Eyes: Negative for blurred vision. Respiratory: Negative for shortness of breath. Cardiovascular: Negative for palpitations, orthopnea and leg swelling. Gastrointestinal: Negative for heartburn, nausea and vomiting. Genitourinary: Negative for dysuria and frequency. No kidney stones Musculoskeletal: Negative for back pain and joint pain. Neurological: Negative for weakness. Psychiatric/Behavioral: The patient is not nervous/anxious and does not have insomnia. OBJECTIVE: BP 130/80 Pulse 79 Resp 16 Ht 188 cm (6' 2) Wt (!) 193.2 kg (426 lb) SpO2 97% BMI 54.70 kg/m BMI = Body mass index is 54.7 kg/m . Waist circumference 63 Neck circumference 20 Physical Exam Constitutional:. --no issues with communication during telephone visit and demonstrates understanding via appropriate interaction, verbalizing understanding ans she consented for this visit visit telephone encounter HEENT: Normocephalic and atraumatic. Eyes: Conjunctiva appear normal. No scleral icterus. Hearing: Is grossly intact. Neck: Range of motion appears normal. Thyroid: appears symmetric and not enlarged. Pulmonary/Chest: Effort normal. Psychiatric: Mood, memory, affect and judgment normal. Neurological: alert and oriented to person, place, and time. ASSESSMENT/PLAN: 1. Class 3 severe obesity with serious comorbidity in adult, unspecified BMI, unspecified obesity type (HCC) - ICD9: 278.01, ICD10: E66.01 (primary diagnosis) Weight increasing - Behavioral and pharmacological intervention ---- counseled in length ,recommended Low carb /low sugar diet --managing maladaptive eating behaviors and adding resistance exercise. Continue low carb diet, weights/cardio exercise and increase NEAT. I have also reviewed he possibility of using weight loss medications in an effort to reduce her appetite. I have reviewed the different therapeutic options available including phentermine, Qsymia, Contrave, Belviq and Saxenda,Topiramate, Metformin, Bupropion We have also reviewed the possibility of using on her medications such as Effexor or metformin which has been also associated with weight loss. I reviewed with patient that she. We agreed that trying Topiramate could be her best option at this point. I reviewed with the patient pros and cons of taking this medication. I have also asked her check her blood pressure twice a week over the next 2 weeks and let me know if he goes over 150/100. --May plan to add phentermine in near future - CONSULT TO BARIATRIC SURGERY - CBC - COMP METABOLIC PANEL - HGB A1C - TSH BLD - VITAMIN B12 BLOOD - LIPID PANEL BASIC - VITAMIN D 25 HYDROXY - INSULIN ASSAY BLOOD - CONSULT TO SLEEP MEDICINE - ADULT - TOPIRAMATE 25 MG TABLET 2. Epigastric hernia - ICD9: 553.29, ICD10: K43.9 -he is interested in bariatric surgery.Online seminar was provided - CONSULT TO BARIATRIC SURGERY - CBC - COMP METABOLIC PANEL - HGB A1C - TSH BLD - VITAMIN B12 BLOOD - LIPID PANEL BASIC - VITAMIN D 25 HYDROXY - INSULIN ASSAY BLOOD 3. Benign hypertension - ICD9: 401.1, ICD10: I10 - suboptimal control - INSULIN ASSAY BLOOD 4. Body mass index 50.0-59.9, adult (HCC) - ICD9: V85.43, ICD10: Z68.43 Weight increasing - Behavioral and pharmacological intervention --- counseled in length ,recommended Low carb /low sugar diet --managing maladaptive eating behaviors and adding resistance exercise. Continue low carb diet, weights/cardio exercise and increase NEAT. I have also reviewed he possibility of using weight loss medications in an effort to reduce her appetite. I have reviewed the different therapeutic options available including phentermine, Qsymia, Contrave, Belviq and Saxenda,Topiramate, Metformin, Bupropion We have also reviewed the possibility of using on her medications such as Effexor or metformin which has been also associated with weight loss. I reviewed with patient that she. We agreed that trying Topiramate could be her best option at this point. I reviewed with the patient pros and cons of taking this medication. I have also asked her check her blood pressure twice a week over the next 2 weeks and let me know if he goes over 150/100. --And is to add phentermine in near future Blood pressure is better controlled recommended to make sure blood pressure is better controlled he will see his PCP.- CONSULT TO BARIATRIC SURGERY - CBC - COMP METABOLIC PANEL - HGB A1C - TSH BLD - VITAMIN B12 BLOOD - LIPID PANEL BASIC - VITAMIN D 25 HYDROXY - INSULIN ASSAY BLOOD - CONSULT TO SLEEP MEDICINE - ADULT - TOPIRAMATE 25 MG TABLET 5. Dietary counseling and surveillance - ICD9: V65.3, ICD10: Z71.3 Reviewed principles of energy metabolism, caloric intake and expenditure, and rationale for treatment program. Also reinforced need for reduced calorie, low fat diet and increased physical activity. 6. Daytime sleepiness - ICD9: 780.54, ICD10: R40.0 - CONSULT TO SLEEP MEDICINE - ADULT 7. Snoring - ICD9: 786.09, ICD10: R06.83 - CONSULT TO SLEEP MEDICINE - ADULT Aviva Miner MD Reviewed principles of energy metabolism, caloric intake and expenditure, and rationale for treatment program. Also reinforced need for reduced calorie, low fat diet and increased physical activity. Aviva Miner MD History Review: I have reviewed and modified as needed, the following during this visit: Allergies, Past Medical History, Past Surgical History, Past Family History, Past Social History. I spent a total of 69 minutes on the date of the service which included preparing to see the patient, [id number] patient care, completing clinical documentation, obtaining and/or reviewing separately obtained history, performing a medically appropriate examination, counseling and educating the patient/family/caregiver, ordering medications, tests, or procedures, communicating with other HCPs (not separately reported), independently interpreting results (not separately reported), communicating results to the patient/family/caregiver and care coordination (not separately reported). Counseling Visit 45 minutes for preventive counseling/IBT Screening for obesity completed during initial plan of care. Patient was competent and alert at the time that counseling was provided. 5a's reviewed: Assess- I assessed behavioral health risk/factors affecting --- Asked about/assess behavioral health risk(s) and factors affecting choice of behavior change goals --- somewhat sedentry lifestyle lifestyle -eats out frequently --Lack of exercise --Sugary drinks/Beer Advise: clear, specific, personalized behavior change advice. -I gave very clear, specific, and personalized behavior change adviced, including information about personal health harms and benefits. Agree: Patient agrees with selected appropriate treatment goals and methods to change behavior Assist:provided IBT w self-help, handouts, teaching skills and support Using behavior change techniques with self-help and Counseling in achieving Goals. Also discussed supplementing with adjunctive medical treatments when appropriate. Arrange- follow up scheduled, Handouts given to patient My opinion -- 3 hour Rule -last meal /snack 3 hours before sleeping ,try to be done by 7 pm --eat Rich Breakfast - At Least 3 hours break between each meals ,except water --sleep 7 hours at night , that means going to bed early -- drink only water ( no soda or juices) /no Alcohol consumption --cut down on coffee consumption if consuming high amounts Website :You can visit to web site for low carb recipe information as well as visual guide to low carb food: Every1Mobile Limit carb consumption to 80- 100 grams per day. Goals: formal exercise 2-5 x/week as tolerated, start with 10 mins/day to goal of 30 minutes Have 3 meals a day-protein source with each meal (structured meal planning) Food journal daily and bring it to all appointments -- IN GENERAL - suggestions based on important of our sleep cycle called circadian rhythm and its influence on our gut microbiota and overall health tragetory 1) EAT MOST OF YOUR FOOD IN AM AND EARLY PM 2) NO EATING AT NIGHT 3) EXERCISE DURING DAY 4) BE CONSISTENT WITH MEAL STRUCTURE ie Meals at same time during the day. -- keep record of your food intake - it is easier for us to understand your eating habits and food preferences, looking into the amounts of protein, carbs, and fat in your diet. Good examples of apps to track calories are [employer], LOSE IT. Some patient have found FOODUCATE to help with decisions around food, however choose apps that best suits you. -- for exercise, you should shoot for a goal of >150 min per week initially. Depending at what level you are starting, that may seem like an unachievable task. However, the best plan is to just begin to walk or bike or do another activity that you like and track your steps per day. You do not need to pay attention to the time, but you do need to try to increase your exercise every 3 weeks. Other strength exercises, using light weights or training bands may also be useful, especially when combined with regular aerobic exercise. Studies have shown that >200min per week is best to maintain weight loss, so that would be the overall end goal. -- One option we discussed is to REPLACE one of your meals with a liquid meal or frozen meal. This is easy to start and may help with your weight. 1. Liquid meal replacement (Boost, Ensure) 2. Frozen meal (Healthy Choice, Lean Cuisine - sodium under 650mg, can always add veggies to the meal) 3. Powdered protein (Premier Protein) or meal replacement (I like a plant based meal replacement called [employer] - can mix w froz berries and almond milk) This note was partially generated using Inspirato voice recognition system, and there may be some incorrect words, spellings, and punctuation that were not noted in checking the note before saving documented in this encounter [facility] 04-09-2022 Nurse Note Neck 20 Waist 63 documented in this encounter [facility] 04-08-2022 Miscellaneous Notes Original appointment scheduled as virtual. Called patient to remind him its a in office visit. Leonarda Liu MA documented in this encounter [facility] 03-18-2022 History of Presen t illness Narrative Subjective HPI Nontoxic-appearing male presents urgent care chief plaint possible hernia. Duration of symptoms 2 days. Associated symptoms possible palpable mass around umbilical area. Patient states felt like he could feel a mass. Cannot feel it currently. Denies any pain with this. Does work as a construction crew. Denies any specific injuries or heavy lifting. denies history of abdominal surgeries.. Denies any OTC medication use. Denies any nausea vomiting abdominal pain fevers change in bowel or bladder habit cough or rashes. Past medical history prescription medication use allergies reviewed. .Patient presents with: Mass: umbilical mass x2 days, no known injury PAST MEDICAL HISTORY Diagnosis Date Benign hypertension 06/07/2016 PMH - PAST MEDICAL HISTORY OF fractured left femur at age 5 years PMH - PAST MEDICAL HISTORY OF color vision normal Routine or ritual circumcision PAST SURGICAL HISTORY Procedure Laterality Date CIRCUMCISION W/CLAMP/OTH DEV W/BLOCK PAST SURGICAL HISTORY OF age 5 repair of broken femur ALLERGIES Patient has no known allergies. MEDICATIONS lisinopril-hydrochlorothiazide (PRINZIDE,ZESTORETIC) 10-12.5 mg per tablet Take 1 tablet by mouth every morning. FAMILY HISTORY Problem Relation Age of Onset Diabetes Unknown pggm None Mother Hypertension Father None Sister None Maternal Grandmother None Maternal Grandfather None Paternal Grandmother None Paternal Grandfather Social History Tobacco Use Smoking status: Never Smoker Smokeless tobacco: Current User Types: Chew Substance Use Topics Alcohol use: Yes Comment: occasional Drug use: No BP 156/104 Pulse 97 Temp (!) 35.8 C (96.5 F) Resp 20 Wt (!) 192.8 kg (425 lb) SpO2 96% BMI 57.82 kg/m Review of Systems Constitutional: Negative for chills, fever and malaise/fatigue. HENT: Negative for congestion, ear discharge, ear pain, sinus pain and sore throat. Eyes: Negative for blurred vision, pain, discharge and redness. Respiratory: Negative for cough, hemoptysis, sputum production, shortness of breath, wheezing and stridor. Cardiovascular: Negative for chest pain. Gastrointestinal: Negative for abdominal pain, diarrhea, nausea and vomiting. Genitourinary: Negative. Musculoskeletal: Negative for myalgias. Skin: Negative for itching and rash. Neurological: Negative for dizziness and headaches. Objective Physical Exam Constitutional: General: He is not in acute distress. Appearance: He is not diaphoretic. HENT: Head: Normocephalic. Mouth/Throat: Mouth: Mucous membranes are moist. Pharynx: Oropharynx is clear. No oropharyngeal exudate or posterior oropharyngeal erythema. Eyes: Conjunctiva/sclera: Conjunctivae normal. Pupils: Pupils are equal, round, and reactive to light. Cardiovascular: Rate and Rhythm: Normal rate and regular rhythm. Heart sounds: Normal heart sounds. Pulmonary: Effort: Pulmonary effort is normal. No tachypnea, accessory muscle usage or respiratory distress. Breath sounds: Normal breath sounds. No stridor. Abdominal: Palpations: Abdomen is soft. Tenderness: There is no abdominal tenderness. There is no right CVA tenderness, left CVA tenderness, guarding or rebound. Hernia: No hernia is present. Musculoskeletal: Cervical back: Normal range of motion and neck supple. No rigidity or tenderness. Lymphadenopathy: Cervical: No cervical adenopathy. Skin: General: Skin is warm and dry. Neurological: Mental Status: He is alert and oriented to person, place, and time. ASSESSMENT/PLAN: 1. Generalized swelling, mass, or lump of abdomen or pelvis - ICD9: 789.37, ICD10: R19.07 - CONSULT TO GENERAL SURGERY No hernias noted on palpation. Patient will be referred to general surgery. Follow-up with PCP regarding hypertension. Patient was educated on supportive therapies. Patient was instructed to immediately proceed to emergency room for any new, worsening, or symptoms lasting longer than anticipated. The patient's clinical presentation is otherwise unremarkable at this time. Based on exam and clinical finding, the patient is stable for discharge. Plan of care was discussed with patient. Patient verbalizes understanding and agrees to plan of care. This note was generated using Inspirato software. It may contain errors in wording, punctuation, or spelling. 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 Tear of lateral cartilage or meniscus of knee, c urrent 11/21/2009 06/07/2016 Pain in joint, lower leg 11/21/2009 016 documented as of this encounter (statuses as of 04/08/2022) [address]27-2010 History of Past illness Narrative* Problem Noted Date Resolved Date 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 Tear of lateral cartilage or meniscus of knee, c urrent 11/21/2009 06/07/2016 Pain in joint, lower leg 11/21/2009 016 documented as of this encounter (statuses as of 04/09/2022) [address]27-2010 History of Past illness Narrative* Problem Noted Date Resolved Date 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 Tear of lateral cartilage or meniscus of knee, c urrent 11/21/2009 06/07/2016 Pain in joint, lower leg 11/21/2009 016 documented as of this encounter (statuses as of 04/10/2022) [address]27-2010 History of Past illness Narrative* Problem Noted Date Resolved Date 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 Tear of lateral cartilage or meniscus of knee, c urrent 11/21/2009 06/07/2016 Pain in joint, lower leg 11/21/2009 016 documented as of this encounter (statuses as of 05/01/2022) [address]27-2010 History of Past illness Narrative* Problem Noted Date Resolved Date 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 Tear of lateral cartilage or meniscus of knee, c urrent 11/21/2009 06/07/2016 Pain in joint, lower leg 11/21/2009 016 documented as of this encounter (statuses as of 07/16/2022) [address]27-2010 History of Past illness Narrative* Problem Noted Date Resolved Date 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 Tear of lateral cartilage or meniscus of knee, c urrent 11/21/2009 06/07/2016 Pain in joint, lower leg 11/21/2009 016 documented as of this encounter (statuses as of 08/16/2022) [address]27-2010 History of Past illness Narrative* Problem Noted Date Resolved Date 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 Tear of lateral cartilage or meniscus of knee, c urrent 11/21/2009 06/07/2016 Pain in joint, lower leg 11/21/2009 016 documented as of this encounter (statuses as of 08/22/2022) [facility]04-27-2010 History of Past illness Narrative* Problem Noted Date Diagnosed Date Resolved Date 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 Tear of lateral cartilage or meniscus of knee, current 11/21/2009 06/07/2016 Pain in joint, lower leg 11/21/200907/2016 documented as of this encounter (statuses as of 01/23/2024) [facility] Generalized swelling, mass, or lump of abdomen or pelvis- Primary [facility] Diagnosis Class 3 severe obesity with serious comorbidity in adult, unspecified BMI, unspecified obesity type (HCC)- Primary Epigastric hernia Other ventral hernia without mention of obstruction or gangrene Benign hypertension Essential hypertension, benign Body mass index 50.0-59.9, adult (HCC) Body Mass Index 50.0-59.9, adult Dietary counseling and surveillance Dietary surveillance and counseling Daytime sleepiness Snoring Other dyspnea and respiratory abnormality [facility] Diagnosis Epigastric hernia Other ventral hernia without mention of obstruction or gangrene Morbid obesity due to excess calories (HCC) [facility] Diagnosis Epigastric hernia- Primary Other ventral hernia without mention of obstruction or gangrene Class 3 severe obesity with serious comorbidity in adult, unspecified BMI, unspecified obesity type (HCC) Steatosis of liver Other chronic nonalcoholic liver disease [facility] Diagnosis Class 3 severe obesity with serious comorbidity in adult, unspecified BMI, unspecified obesity type (HCC)- Primary Steatosis of liver Other chronic nonalcoholic liver disease Benign hypertension Essential hypertension, benign Body mass index 50.0-59.9, adult (HCC) Body Mass Index 50.0-59.9, adult Dietary counseling and surveillance Dietary surveillance and counseling Daytime sleepiness Ventral hernia without obstruction or gangrene Ventral hernia, unspecified, without mention of obstruction or gangrene documented in this encounter [facility] Summary Purpose Family History No Family History Records FoundNo Family History Records FoundNo Family History Records FoundNo Family History Records FoundNo Family History Records FoundNo Family History Records Found Advance Directives No Advanced Directives Records FoundNo Advanced Directives Records FoundNo Advanced Directives Records FoundNo Advanced Directives Records FoundNo Advanced Directives Records FoundNo Advanced Directives Records Found Reason for Referral Specialty Diagnoses / Procedures Referred By Contac t Referred To Contact General Surgery Diagnoses Generalized swelling, mass, or lump of abdomen or pelvis Procedures CONSULT TO GENERAL SURGERY OFFICE/OUTPATIENT [facility] 60-74 MINUTES Bogdan Graham APRN.ALTERATION INSPECTOR [address] [place] [address] Referral ID Status Reason Start Date Expiration Date Visits Requested Visits Authorized [id number] Authorized PCP Requested Referral 03/18/2022 03/18/2023 1 1 Specialty Diagnoses / Procedures Referred By Contac t Referred To Contact Diagnoses Class 3 severe obesity with serious comorbidity in adult, unspecified BMI, unspecified obesity type (HCC) Body mass index 50.0-59.9, adult (HCC) Daytime sleepiness Snoring Procedures CONSULT TO SLEEP MEDICINE - ADULT OFFICE/OUTPATIENT [facility] 60-74 MINUTES Aviva Miner MD [address] [facility] [address] [place] [id number] Referral ID Status Reason Start Date Expiration Date Visits Requested Visits Authorized [id number] Authorized PCP Requested Referral 04/09/2022 07/08/2022 1 1 Specialty Diagnoses / Procedures Referred By Contac t Referred To Contact Diagnoses Epigastric hernia Benign hypertension Class 3 severe obesity with serious comorbidity in adult, unspecified BMI, unspecified obesity type (HCC) Body mass index 50.0-59.9, adult (HCC) Procedures CONSULT TO BARIATRIC SURGERY Aviva Miner MD [address] [employer] [facility] [employer] [address] [place] [address] Referral ID Status Reason Start Date Expiration Date V isits Requested Visits Authorized [id number] Ref Not Required 04/09/2022 06/08/2022 1 1 Specialty Diagnoses / Procedures Referred By Contac t Referred To Contact CT IMAGING Diagnoses Epigastric hernia Morbid obesity due to excess calories (HCC) Procedures CT ABD/PEL W IVCON CT ABD & PELVIS W/CONTRAST Meek Hartmann MD [address] [place] [address] Ct Imaging Referral ID Status Reason Start Date Expiration Date V isits Requested Visits Authorized [id number] Closed Auto-Generate d Referral 03/26/2022 04/25/2022 1 1 Specialty Diagnoses / Procedures Referred By Contac t Referred To Contact Diagnoses Class 3 severe obesity with serious comorbidity in adult, unspecified BMI, unspecified obesity type (HCC) Daytime sleepiness Procedures CONSULT TO SLEEP MEDICINE - ADULT OFFICE/OUTPATIENT [facility] 60-74 MINUTES Aviva Miner MD 1 [facility] [address] [place] [address] Referral ID Status Reason Start Date Expiration Date Visits Requested Visits Authorized [id number] Authorized PCP Requested Referral 08/16/2022 11/14/2022 1 1 Additional Source Comments (unrecognized sect ion and content) No Status Records FoundNo Status Records FoundNo Status Records FoundNo Status Records FoundNo Status Records FoundNo Status Records Found INFORMATION SOURCE (unrecogn ized section and content) DATE CREATED AUTHOR 05/21/2018 [facility] DATE CREATED AUTHOR AUTHOR'S ORGANIZ ATION 09/05/2023 [facility] DATE CREATED AUTHOR AUTHOR'S ORGANIZ ATION 12/04/2023 [facility] DATE CREATED AUTHOR AUTHOR'S ORGANIZ ATION 01/18/2024 [facility] DATE CREATED AUTHOR AUTHOR'S ORGANIZ ATION 02/23/2025 [facility] DATE CREATED AUTHOR AUTHOR'S ORGANIZ ATION 07/15/2025 [facility] Source Comments (unrecognize d section and content) In the event this informatio n is protected by the Federal Confidentiality of Alcohol and Drug Abuse Patient Records regulations: The Federal rules restrict any use of the information to criminally investigate or prosecute any alcohol or drug abuse patient.[facility] the event this information is protected by the Federal Confidentiality of Alcohol and Drug Abuse Patient Records regulations: The Federal rules restrict any use of the information to criminally investigate or prosecute any alcohol or drug abuse patient.[facility] the event this information is protected by the Federal Confidentiality of Alcohol and Drug Abuse Patient Records regulations: The Federal rules restrict any use of the information to criminally investigate or prosecute any alcohol or drug abuse patient.[facility] the event this information is protected by the Federal Confidentiality of Alcohol and Drug Abuse Patient Records regulations: The Federal rules restrict any use of the information to criminally investigate or prosecute any alcohol or drug abuse patient.[facility] the event this information is protected by the Federal Confidentiality of Alcohol and Drug Abuse Patient Records regulations: The Federal rules restrict any use of the information to criminally investigate or prosecute any alcohol or drug abuse patient.[facility] the event this information is protected by the Federal Confidentiality of Alcohol and Drug Abuse Patient Records regulations: The Federal rules restrict any use of the information to criminally investigate or prosecute any alcohol or drug abuse patient.[facility] the event this information is protected by the Federal Confidentiality of Alcohol and Drug Abuse Patient Records regulations: The Federal rules restrict any use of the information to criminally investigate or prosecute any alcohol or drug abuse patient.[facility] the event this information is protected by the Federal Confidentiality of Alcohol and Drug Abuse Patient Records regulations: The Federal rules restrict any use of the information to criminally investigate or prosecute any alcohol or drug abuse patient.[facility] the event this information is protected by the Federal Confidentiality of Alcohol and Drug Abuse Patient Records regulations: The Federal rules restrict any use of the information to criminally investigate or prosecute any alcohol or drug abuse patient.[facility] the event this information is protected by the Federal Confidentiality of Alcohol and Drug Abuse Patient Records regulations: The Federal rules restrict any use of the information to criminally investigate or prosecute any alcohol or drug abuse patient.[facility] Reason for Visit (unrecogniz ed section and content) Reason Comments Medication Authorization [email or web address] Reason Comments Medication Authorization topamax Reason Comments Established Patient Reason Comments Missed Appointment Called to reschedule appt. For Phentermine #1 Reason Comments Results Specialty Diagnoses / Procedures Referred By Contac t Referred To Contact CT IMAGING Diagnoses Epigastric hernia Morbid obesity due to excess calories (HCC) Procedures CT ABD/PEL W IVCON CT ABD & PELVIS W/CONTRAST Meek Hartmann MD [address] [facility] [address] [place] [address] Ct Imaging Referral ID Status Reason Start Date Expiration Date V isits Requested Visits Authorized [id number] Closed Auto-Generate d Referral 03/26/2022 04/25/2022 1 1 Reason Comments Weight Problem Reason Comments Appointment switched to in offic e FOR RECORDS PERTAINING TO PATIENTS WHO ARE OR HAVE BEEN ENROLLED IN A CHEMICAL DEPENDENCY/SUBSTANCEABUSE PROGRAM, SOME INFORMATION MAY BE OMITTED. This clinical summary was aggregated from multiple sources. Caution should be exercised in using it in the provision of clinical care. This summary normalizes information from multiple sources, and as a consequence, information in this document may materially change the coding, format and clinical context of patient data. In addition, data may be omitted in some cases. CLINICAL DECISIONS SHOULD BE BASED ON THE PRIMARY CLINICAL RECORDS. [facility]. provides no warranty or guarantee of the accuracy or completeness of information in this document.
--- NOTE | 2025-07-22 08:10 | MRI_ITS ---
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 Grade I sprain of the posterior talofibular ligament. Tibialis posterior tenosynovitis and mild tendonitis. Mild tibiotalar, tibio-fibular, sub-talar and intertarsal joints effusion. Diffuse subcutaneous soft tissue edema of the ankle. Reading [facility]
== END | disposition home or self-care (01) ==
LOC: OPMRI 07:38
PROVIDERS: Referring Provider Podiatrist; Visit Provider Podiatrist
DX: M25.371 Other instability, right ankle (principal); S93.491A Sprain of other ligament of right ankle, initial encounter; M85.88 Other specified disorders of bone density and structure, other site
CPT/HCPCS: 73721